=== PATIENT | female | born 1965 | race Caucasian/White ===

== ENCOUNTER 2022-05-06 03:31 | Inpatient (IN) | payer OTHER, SELFPAY ==
--- NOTE | 2022-05-06 | ECG_ITS ---
Test Reason : MED CLEARANCE Blood Pressure : / mmHG Vent. Rate : 079 BPM Atrial Rate : 079 BPM P-R Int : 136 ms QRS Dur : 074 ms QT Int : 362 ms P-R-T Axes : 012 027 025 degrees QTc Int : 415 ms Normal sinus rhythm Normal ECG When compared with ECG of 14-OCT-2019 19:59, No significant change was found Referred By: Generic ED Physician Electronically Signed By:FORTINO CALVILLO
--- NOTE | ~2022-05-06 | XR_ITS ---
EXAMINATION: XR FOOT, LEFT CLINICAL INFORMATION: Rule out fracture 3rd-5th metatarsals COMPARISON: None TECHNIQUE: AP, lateral, and oblique views of the left foot. FINDINGS: Osseous alignment is anatomic. There is chronic appearing absence of the head of the second proximal phalanx. There is subtle cortical irregularity at the head of the fifth proximal phalanx. Articular alignment is anatomic. There is mild degenerative change at the first MTP joint. Posterior and plantar calcaneal spurs are noted. No significant focal soft tissue abnormality identified. XR/XR foot LT 2V IMPRESSION: Subtle cortical irregularity at the head of the fifth proximal phalanx, suspicious for nondisplaced fracture in the setting of trauma; clinical correlation recommended at this site.
[2022-05-06 03:41] VITALS: BP 145/78; PULSE 86; RESP 16; TEMP 37; O2SAT 96; BMI 34.7
[2022-05-06 04:24] LABS: Appearance Urine Clear; Color Urine Yellow; Glucose Urine UA Negative (Negative); Leukocyte Esterase Urine Moderate (2+) (Negative); Nitrite Urine Negative (Negative); Urine Blood Negative (Negative); Urine Ketones Negative (Negative); Urine Protein Negative (Neg-Trace)
[2022-05-06 04:29] LABS: Bacteria Urine None Seen (None Seen); Hyaline Casts Urine 0-2 /LPF (0-2); RBC Urine 0-2 /HPF (0-2); WBC Urine 21-50 /HPF (0-5)
[2022-05-06 04:38] LABS: COVID-19 Test Negative (Negative)
[2022-05-06 04:40] LABS: Amphetamine Screen Urine Not Detected (Not Detect); Barbiturates, Urine Not Detected (Not Detect); Benzodiazepines Screen Urine Not Detected (Not Detect); Cannabinoid Screen Urine Not Detected (Not Detect); Cocaine Screen Urine Not Detected (Not Detect); Fentanyl, urine Not Detected (Not Detect); Opiate Screen Urine Not Detected (Not Detect); Phencyclidine Screen Urine Not Detected (Not Detect)
[2022-05-06 04:41] LABS: MANUAL DIFF FLAG NO
[2022-05-06 04:42] LABS: Basophils Absolute Auto 0.1 X10*3/uL (0.0-0.2); Basophils Percent Auto 0.5 % (0-2); Eosinophils Absolute Auto 0.3 X10*3/uL (0.0-0.4); Eosinophils Percent Auto 2.8 % (0-4); Hematocrit 39.3 % (37.0-47.0); Hemoglobin 13.4 g/dl (12.0-16.0); Imm Gran Abs Auto 0.05 X10*3/uL (0.00-0.03); Imm Gran Pct Auto 0.5 % (0.0-0.4); Lymphocytes Absolute Auto 1.2 X10*3/uL (1.2-4.9); Lymphocytes Percent Auto 11.4 % (20-40); Mean Corpuscular HGB Conc 34.1 g/dl (31.0-35.0); Mean Corpuscular Hemoglobin 30.7 pg (27.0-33.0); Mean Corpuscular Volume 90.1 fL (80.0-98.0); Mean Platelet Volume 9.1 fL (9.4-12.3); Monocytes Absolute Auto 0.7 X10*3/uL (0.1-1.2); Monocytes Percent Auto 6.7 % (2-11); Neutrophils Percent Auto 78.1 % (45-73); Platelet Count 240 X10*3/uL (160-400); Red Blood Count 4.36 X10*6/uL (4.20-5.50); Red Cell Distribution Width 12.9 % (11.0-16.0); White Blood Count 10.2 X10*3/uL (4.8-10.8)
[2022-05-06 04:52] LABS: Prothrombin Time 11.7 SEC (10.0-13.1)
[2022-05-06 05:00] LABS: Alanine Aminotransferase 30 U/L (0-31); Albumin Level 3.8 g/dL (3.5-5.0); Alkaline Phosphatase 108 U/L (39-117); Anion Gap 16 (12-20); Aspartate Amino Transferase 24 U/L (5-31); Bilirubin Total 0.3 mg/dL (0.0-1.0); Blood Urea Nitrogen 10 mg/dL (9-16); Calcium 8.8 mg/dL (8.4-10.2); Carbon Dioxide 24 mmol/L (22-29); Chloride 103 mmol/L (96-108); Creatinine Clr Calc Pharmacy 91.4; Estimated Glomerular Filt Rate > 60; Glucose Random 119 mg/dL (60-115); Potassium 3.9 mmol/L (3.3-5.1); Sodium 139 mmol/L (135-145); Total Protein 7.2 g/dL (6.5-8.0)
--- NOTE | 2022-05-06 06:17 | ED_ITS ---
HPI - Psych General Chief Complaint: Psychiatric Symptoms Stated Complaint: crisis Time Seen by Provider: 05/06/22 06:05 Source: patient and EMS Mode of arrival: EMS Limitations: no limitations History of Present Illness HPI Narrative: Patient comes to the emergency room via EMS from home. Patient attempted to com alexander suicide by overdosing with Seroquel 2 days ago. Patient states that her depression has been getting worse, behavioral health network [facility] the patient and patient came to the emergency room. Patient current complaint is pain in her toes. Patient has bruising and the dorsal aspect of the left foot. Patient states that 2 days ago when she was very somnolent after taking all that Seroquel, she had her toes against the wall. Otherwise, at this time patient has no complaints. Related Data Home Medications Medication Instructions Recorded Confirmed escitalopram oxalate 20 mg tablet 1 tab PO QAM 05/06/22 05/06/22 levothyroxine 88 mcg tablet 1 tab PO DAILY 05/06/22 05/06/22 lorazepam 1 mg tablet 1 tab PO BEDTIME PRN insomnia 05/06/22 05/06/22 pantoprazole 20 mg tablet,delayed 1 tab PO DAILY 05/06/22 05/06/22 release phenytoin sodium extended 100 mg 2 cap PO DAILY 05/06/22 05/06/22 capsule quetiapine 50 mg tablet 1 tab PO BEDTIME PRN Anxiety 05/06/22 05/06/22 Allergies Allergy/AdvReac Type Severity Reaction Status Date / Time lamotrigine [From LAMICTAL] Allergy Mild SHORTNESS Unverified 05/11/20 16:28 OF BREATH cat dander [CATS] Allergy Unknown unk Unverified 05/11/20 16:28 cheese [CHEESE] Allergy Unknown UNKNOWN Unverified 05/11/20 16:28 dog dander [DOGS] Allergy Unknown unk Unverified 05/11/20 16:28 mold [MOLD] Allergy Unknown UNKNOWN Unverified 05/11/20 16:28 pollen extracts [POLLEN] Allergy Unknown UNKNOWN Unverified 05/11/20 16:28 ragweed pollen [RAGWEED] Allergy Unknown UNKNOWN Unverified 05/11/20 16:28 tomato [TOMATO] Allergy Unknown UNKNOWN Unverified 05/11/20 16:28 adhesives Allergy Unknown unk Uncoded 05/11/20 16:28 Review of Systems Review of Systems: Constitutional : No Weight loss, No Fever, No Chills, No Night Sweats, No Fatigue, No Malaise ENT/Mouth : No Hearing loss, No Ear Pain, No Nasal Congestion, No Sinus Pain, No Hoarseness, No sore throat, No Rhinorrhea, No Swallowing Difficulty Eyes: No Eye Pain, No Swelling, No Redness, No Foreign Body, No Discharge, No Vision Changes Cardiovascular : No Chest Pain, No SOB, No Dyspnea on Exertion, No Orthopnea, No Edema, No Palpitations Respiratory : No Cough, No Sputum, No Wheezing, No Smoke Exposure, No Dyspnea Gastrointestinal : No Nausea, No Vomiting, No Diarrhea, No Constipation, No abdominal Pain, No Hematochezia, No Melena Genitourinary : no irregular bleeding, No Dysuria, No Urinary Frequency, No Hematuria, No Urinary Incontinence, No Urgency, No Flank Pain, No Urinary Flow Changes, No Hesitancy Musculoskeletal : No joint pain, No Myalgias, No Joint Swelling Skin : No Skin Lesions, No rash Neuro : No Weakness, No Numbness, No Paresthesias, No Loss of Consciousness, No Dizziness, No Headache Psych : Complaining of suicidal ideation and suicidal attempt 2 days ago. No homicidal ideation. Heme/Lymph: No Bruising, No Bleeding,No Lymphadenopathy Endocrine : No Polyuria, No Polydipsia, No Temperature Intolerance [facility] Past Medical History Medical History (Updated 05/06/22 @ 06:56 by Sidra Perez MD) Chronic post-traumatic stress disorder (PTSD) Epilepsy Major depression with psychotic features Social History Social History Advance Directives: No Advance Directives Information Provided: Yes Physical Exam Vital Signs: Vital Signs: Last Vital Signs Temp 98.6 F 05/06/22 03:41 Pulse 86 05/06/22 03:41 Resp 16 05/06/22 03:41 BP 145/78 H 05/06/22 03:41 Pulse Ox 96 05/06/22 03:41 O2 Del Method 05/06/22 03:41 BMI result Body Mass Index 34.7 Const: Other: Appearance: Alert. Oriented X3. No acute distress. Eyes: Pupils equal, round and reactive to light. ENT: Pharynx normal. Neck: Normal inspection. Neck supple. No lymph nodes noted. No crepitus CVS: Normal heart rate and rhythm. Pulses normal. Normal S1 and S2 Respiratory: No respiratory distress. Breath sounds normal. No Wheezing. No rales Abdomen: Soft and nontender. No rigidity. No distention. Skin: Skin warm and dry. Normal skin color. Normal skin turgor. Extremities: No lower extremity edema. Patient has ecchymosis on the dorsum of the left foot, the 3rd 4th and 5th toes of the left foot are swollen on the dorsum of the foot has ecchymosis. Neuro: Oriented X 3. No motor deficit. No sensory deficit. Moving all extremities. No slurred speech. CN 2 through 12 grossly intact Psych: calm, cooperative, normal affect Course Course Course Narrative: Patient's labs are pending. X-ray of the foot pending. Patient has a mild UTI, patient being treated with cefuroxime. Patient is on a Section 12, behavioral health network consult pending. Physician observation started at 06:22 X-ray of the foot shows a subtle cortical irregularity of the head of the 5th proximal phalanx, suspicion for a nondisplaced fracture. Patient's toes have been kevin-taped [facility] - Psych Lab Data Result diagrams: 05/06/22 04:30 05/06/22 04:30 Labs: Lab Results 05/06/22 05/06/22 05/06/22 Range/Units 04:06 04:06 04:06 WBC (4.8-10.8) X10*3/uL RBC (4.20-5.50) X10*6/uL Hgb (12.0-16.0) g/dl Hct (37.0-47.0) % MCV (80.0-98.0) fL MCH (27.0-33.0) pg MCHC (31.0-35.0) g/dl RDW (11.0-16.0) % Plt Count (160-400) X10*3/uL MPV (9.4-12.3) fL Immature Gran % (Auto) (0.0-0.4) % Neut % (Auto) (45-73) % Lymph % (Auto) (20-40) % [place] % (Auto) (2-11) % Eos % (Auto) (0-4) % Baso % (Auto) (0-2) % Lymph # (Auto) (1.2-4.9) X10*3/uL [place] # (Auto) (0.1-1.2) X10*3/uL Eos # (Auto) (0.0-0.4) X10*3/uL Baso # (Auto) (0.0-0.2) X10*3/uL Abs Immat Gran (auto) (0.00-0.03) X10*3/uL Absolute Neuts (auto) (2.0-8.3) x10*3/uL Absolute Nucleated RBC (0.0-0.012) X10*3/uL Nucleated RBC % (auto) (0.0-0.2) /100WBC PT (10.0-13.1) SEC INR (0.9-1.1) Sodium (135-145) mmol/L Potassium (3.3-5.1) mmol/L Chloride (96-108) mmol/L Carbon Dioxide (22-29) mmol/L Anion Gap (12-20) BUN (9-16) mg/dL Creatinine (0.5-1.4) mg/dL Estim Creat Clear Calc Estimated GFR Random Glucose (60-115) mg/dL Calcium (8.4-10.2) mg/dL Total Bilirubin (0.0-1.0) mg/dL AST (5-31) U/L ALT (0-31) U/L Alkaline Phosphatase (39-117) U/L Total Protein (6.5-8.0) g/dL Albumin (3.5-5.0) g/dL Urine Color Yellow Urine Appearance Clear Urine pH 6.0 (5.0-9.0) Ur Specific [place] 1.010 (1.005-1.025) Urine Protein Negative (Neg-Trace) mg/dL Urine Glucose (UA) Negative (Negative) mg/dL Urine Ketones Negative (Negative) mg/dL Urine Blood Negative (Negative) Urine Nitrite Negative (Negative) Ur Leukocyte Esterase Moderate (2+) H (Negative) Urine RBC 0-2 (0-2) /HPF Urine WBC 21-50 H (0-5) /HPF Ur Squamous Epith Cells 3-5 (0-2) /HPF Urine Bacteria None Seen (None Seen) Hyaline Casts 0-2 (0-2) /LPF Urine Opiates Screen Not Detected (Not Detect) Urine Fentanyl Screen Not Detected (Not Detect) Ur Barbiturates Screen Not Detected (Not Detect) Ur Phencyclidine Scrn Not Detected (Not Detect) Ur Amphetamines Screen Not Detected (Not Detect) U Benzodiazepines Scrn Not Detected (Not Detect) Urine Cocaine Screen Not Detected (Not Detect) U Marijuana (THC) Screen Not Detected (Not Detect) COVID-19 (MEET) Negative (Negative) COVID-19 Clin Com See Note 05/06/22 05/06/22 05/06/22 Range/Units 04:30 04:30 04:30 WBC 10.2 (4.8-10.8) X10*3/uL RBC 4.36 (4.20-5.50) X10*6/uL Hgb 13.4 (12.0-16.0) g/dl Hct 39.3 (37.0-47.0) % MCV 90.1 (80.0-98.0) fL MCH 30.7 (27.0-33.0) pg MCHC 34.1 (31.0-35.0) g/dl RDW 12.9 (11.0-16.0) % Plt Count 240 (160-400) X10*3/uL MPV 9.1 L (9.4-12.3) fL Immature Gran % (Auto) 0.5 H (0.0-0.4) % Neut % (Auto) 78.1 H (45-73) % Lymph % (Auto) 11.4 L (20-40) % [place] % (Auto) 6.7 (2-11) % Eos % (Auto) 2.8 (0-4) % Baso % (Auto) 0.5 (0-2) % Lymph # (Auto) 1.2 (1.2-4.9) X10*3/uL [place] # (Auto) 0.7 (0.1-1.2) X10*3/uL Eos # (Auto) 0.3 (0.0-0.4) X10*3/uL Baso # (Auto) 0.1 (0.0-0.2) X10*3/uL Abs Immat Gran (auto) 0.05 H (0.00-0.03) X10*3/uL Absolute Neuts (auto) 8.0 (2.0-8.3) x10*3/uL Absolute Nucleated RBC 0.000 (0.0-0.012) X10*3/uL Nucleated RBC % (auto) 0.0 (0.0-0.2) /100WBC PT 11.7 (10.0-13.1) SEC INR 1.0 (0.9-1.1) Sodium 139 (135-145) mmol/L Potassium 3.9 (3.3-5.1) mmol/L Chloride 103 (96-108) mmol/L Carbon Dioxide 24 (22-29) mmol/L Anion Gap 16 (12-20) BUN 10 (9-16) mg/dL Creatinine 0.79 (0.5-1.4) mg/dL Estim Creat Clear Calc 91.4 Estimated GFR > 60 Random Glucose 119 H (60-115) mg/dL Calcium 8.8 (8.4-10.2) mg/dL Total Bilirubin 0.3 (0.0-1.0) mg/dL AST 24 (5-31) U/L ALT 30 (0-31) U/L Alkaline Phosphatase 108 (39-117) U/L Total Protein 7.2 (6.5-8.0) g/dL Albumin 3.8 (3.5-5.0) g/dL Urine Color Urine Appearance Urine pH (5.0-9.0) Ur Specific [place] (1.005-1.025) Urine Protein (Neg-Trace) mg/dL Urine Glucose (UA) (Negative) mg/dL Urine Ketones (Negative) mg/dL Urine Blood (Negative) Urine Nitrite (Negative) Ur Leukocyte Esterase (Negative) Urine RBC (0-2) /HPF Urine WBC (0-5) /HPF Ur Squamous Epith Cells (0-2) /HPF Urine Bacteria (None Seen) Hyaline Casts (0-2) /LPF Urine Opiates Screen (Not Detect) Urine Fentanyl Screen (Not Detect) Ur Barbiturates Screen (Not Detect) Ur Phencyclidine Scrn (Not Detect) Ur Amphetamines Screen (Not Detect) U Benzodiazepines Scrn (Not Detect) Urine Cocaine Screen (Not Detect) U Marijuana (THC) Screen (Not Detect) COVID-19 (MEET) (Negative) COVID-19 Clin Com Imaging Data Foot x-ray: Radiologist's impression: FINDINGS: Osseous alignment is anatomic. There is chronic appearing absence of the head of the second proximal phalanx. There is subtle cortical irregularity at the head of the fifth proximal phalanx. Articular alignment is anatomic. There is mild degenerative change at the first MTP joint. Posterior and plantar calcaneal spurs are noted. No significant focal soft tissue abnormality identified. XR/XR foot LT 2V IMPRESSION: Subtle cortical irregularity at the head of the fifth proximal phalanx, suspicious for nondisplaced fracture in the setting of trauma; clinical correlation recommended at this site. Discharge Plan Discharge Clinical Impression: Suicidal ideation, UTI (urinary tract infection), Fracture of toe Patient Disposition: Still a Patient Prescriptions: No Action phenytoin sodium extended 100 mg capsule 2 cap PO DAILY pantoprazole 20 mg tablet,delayed release (DR/EC) 1 tab PO DAILY levothyroxine 88 mcg tablet 1 tab PO DAILY escitalopram oxalate 20 mg tablet 1 tab PO QAM quetiapine 50 mg tablet 1 tab PO BEDTIME PRN (Reason: Anxiety) lorazepam 1 mg tablet 1 tab PO BEDTIME PRN (Reason: insomnia)
--- NOTE | 2022-05-06 07:04 | PC.NURSE ---
Patient slept intermittently, no distress observed/reported, patient was assessed by [facility] in the community, disposition per n is section 12 inpatient bed search, med rec completed/pending provider's approval, patient is + for UTI treated with ceftin 500 mg BID, morning dose administered/patient compliant, X-ray of left foot done/result unremarkable, behavior pleasant and non concerning, will continue to monitor.
[2022-05-06 07:30] LABS: Phenytoin Dilantin 0.6 ug/mL (10.0-20.0)
[2022-05-06] MEDS: Phenytoin Sodium Extended 100 MG CAPSULE 300 MG PO (08:01)
[2022-05-06] MEDS: Omeprazole 20 MG CAPSULE.DR PO (08:01)
[2022-05-06] MEDS: Levothyroxine Sodium 88 MCG TABLET PO (08:01)
[2022-05-06] MEDS: Escitalopram Oxalate 20 MG TABLET PO (08:01)
[2022-05-06 09:52] VITALS: BP 132/68; PULSE 85; RESP 17; TEMP 36.6; O2SAT 98
[2022-05-06] MEDS: Phenytoin Sodium Extended 100 MG CAPSULE 200 MG PO (10:21)
--- NOTE | 2022-05-06 10:28 | PC.NURSE ---
kevin tape to left 4th and 5th foot digits per md this am. pt calm and cooperative aware of plan of care and denied having any questions at this time.
--- NOTE | 2022-05-06 14:56 | PC.NURSE ---
Pt seen for individual OT intervention on this date. Pt stated she was very anxious, rateed it at a 10/10 and wished to process some of her thoughts and emotions. This auto service writer used Therapeutic Use of Self to engage with resident and provide comfort and coping strategies. At end of intervention pt was visibly calmer, thanked this auto service writer and rated her anxiety at a 6/10.
[2022-05-06] MEDS: QUEtiapine Fumarate 50 MG TABLET PO (20:46)
[2022-05-07 02:03] VITALS: BP 118/63; PULSE 86; RESP 17; TEMP 37.1; O2SAT 96
--- NOTE | 2022-05-07 06:10 | PC.NURSE ---
Patient slept through the night, no distress observed/reported, patient was assessed by [facility] in the community, disposition per n is section 12 inpatient bed search, medication compliant, behavior pleasant and non concerning, VSS, will continue to monitor.
[2022-05-07] MEDS: Omeprazole 20 MG CAPSULE.DR PO (06:21)
[2022-05-07] MEDS: Levothyroxine Sodium 88 MCG TABLET PO (06:21)
--- NOTE | 2022-05-07 07:40 | PC.NURSE ---
patient appears to remain at rest at present respirations are even and unlabored patient appears in no distress
[2022-05-07] MEDS: Escitalopram Oxalate 20 MG TABLET PO (08:04)
[2022-05-07] MEDS: Phenytoin Sodium Extended 100 MG CAPSULE 200 MG PO (08:04)
[2022-05-07] MEDS: LORazepam 1 MG TABLET PO (12:16)
[2022-05-07 13:05] VITALS: BP 129/68; PULSE 79; TEMP 36.8; O2SAT 94
[2022-05-07 14:55] LABS: COVID-19 Test Negative (Negative); IDNOW Serial# 55D5AD1C
--- NOTE | 2022-05-07 16:45 | PC.NURSE ---
Pt signed a 3-day notice on 05/07/22, up on 05/10/22
--- NOTE | 2022-05-07 19:14 | PC.ADMIT ---
Addendum entered by Dariusz Harris RN 05/07/22 20:44: Pts 4th +5th foot digits has kevin tape. Foot [id number] toes Original Note: Pt is a 57 year old female who presents to from [facility] ED at approx 1600 on a cv status. Pt is covid - Utox screen -, pt is taking ABX for a UTI. Per chart review, pt called [facility] Crisis reporting she is spiraling downward due to a recent of her father on 04/04/22. Pt worried about having a seizure due to not sleeping. Pt reported that she had a suicide attempt two days ago in which she overdosed on whatever drugs she can find. During admit, pt reported that her phenytoin level is at 0.6.Dr. Sifuentes's office was contacted to discuss phenytoin levels, but the office was unreachable. Pt diagnosed with unspecified depressive disorder and uncomplicated bereavement admission. Provider contacted and notified of admission. Start treatment plan and monitor for safety.
[2022-05-07] MEDS: QUEtiapine Fumarate 50 MG TABLET PO (20:10)
[2022-05-07] MEDS: diphenhydrAMINE HCL 25 MG TABLET 50 MG PO (20:36)
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
[2022-05-07] MEDS: Phenytoin Sodium Extended 100 MG CAPSULE 300 MG PO (22:05)
[2022-05-07] MEDS: Hydrocortisone 1 % Cream 28.35 GM TUBE 1 APPL TOPICAL (22:08)
[2022-05-08] MEDS: Acetaminophen 325 MG TABLET 650 MG PO (05:03)
[2022-05-08 07:30] VITALS: BP 121/67; PULSE 86; RESP 16; TEMP 36.3; O2SAT 95
[2022-05-08] MEDS: Phenytoin Sodium Extended 100 MG CAPSULE 200 MG PO (08:32)
[2022-05-08] MEDS: Escitalopram Oxalate 20 MG TABLET PO (08:32)
[2022-05-08] MEDS: Omeprazole 20 MG CAPSULE.DR PO (08:32)
[2022-05-08] MEDS: Levothyroxine Sodium 88 MCG TABLET PO (08:32)
[2022-05-08] MEDS: guaiFENesin LA 600 MG TAB.ER.12H PO (11:52)
[2022-05-08] MEDS: Ibuprofen 600 MG TABLET PO (11:53)
[2022-05-08] MEDS: Hydrocortisone 1 % Cream 28.35 GM TUBE 1 APPL TOPICAL ×3 (16:00→20:39)
--- NOTE | 2022-05-08 16:03 | PC.NURSE ---
Pt signed a 3 day notice on 05/07 up on Friday, 05/10. , MARITZA, and SW aware.
--- NOTE | 2022-05-08 16:33 | P.PNPSI_ITS ---
Subjective Subjective Date of Service: 05/08/22 Reason For Visit: Depression/ SI Interim History: Patient reports feeling much better. She says depression is gone and suicidality fully resolved. She says it is because she is back on her Dilantin; off it she was starting to feel very confused and emotional and now back on it she is feeling back to her regular self. She is sure that this is the only reason she got dysregulated and suicidal, was having run out of this medication. Patient says I am not suicidal... I have a 19-year-old son with Asperger's...I'm not suicidal. Patient discussed the struggle she has been having with this medication, how insurance companies have changed and she has had a hard time getting her regular dose approved. She says that her outpatient neurologist Dr. Yoo has been working to get it approved but it is been slow going. She is also in between PCPs since the insurance change which is making her anxious. Patient shares that she feels ready to go home. She signed a 3 day notice. However she expresses much gratitude for help received on the unit and help trying to get her medications squared away. Mental Status Exam Mental Status Exam Narrative: Pt is alert and oriented; behavior is cooperative, friendly and calm; patient is not in distress; dressed in casual attire, adequately groomed, good hygiene; mood is described as good...better and affect congruent, bright; eye contact appropriate; Speech is normal rate, volume and prosody and not pressured; no psychomotor agitation/retardation present; thought process is organized and goal directed; Thought content is on tx; otherwise pertinent to relevant topics and without any delusional content, paranoid ideations or grandiosity; denies any SI/HI. There is no evidence of perceptual disturbance. Patients insight and judgment are intact. Diagnostics Vital Signs (24Hr): Vital Signs - 24 hr 05/08/22 07:30 Temperature 97.3 F Pulse Rate 86 Respiratory Rate 16 Blood Pressure 121/67 Pulse Oximetry 95 Oxygen Delivery Method Room Air BMI result Body Mass Index 34.7 Labs Results: 05/06/22 04:30 05/06/22 04:30 Labs: Laboratory Results - last 48 hr 05/07/22 14:28 COVID-19 (MEET) Negative COVID-19 Clin Com See Note Imaging Radiology Impressions: ITS Impressions Foot X-Ray 05/06/22 06:30 IMPRESSION: Subtle cortical irregularity at the head of the fifth proximal phalanx, suspicious for nondisplaced fracture in the setting of trauma; clinical correlation recommended at this site. Medications Medications Current Medications Acetaminophen (Acetaminophen 325 Mg Tablet) 650 mg PO Q6H PRN PRN Reason: Headache/Pain Mild Scale (1-3) Last Admin: 05/08/22 05:03 Dose: 650 mg Al Hydroxide/Mg Hydroxide (Magnesium Hydrox/Alum Hydrox 30 Ml Oral.Susp) 30 ml PO Q6H PRN PRN Reason: Heartburn/Nausea Cefuroxime Axetil (Cefuroxime Axetil 250 Mg Tablet) 250 mg PO BID [facility] Last Admin: 05/08/22 08:32 Dose: 250 mg Escitalopram Oxalate (Escitalopram Oxalate 20 Mg Tablet) 20 mg PO DAILY [facility] Last Admin: 05/08/22 08:32 Dose: 20 mg Hydrocortisone (Hydrocortisone 1 % Cream 28.35 Gm Tube) 1 appl TOPICAL BID PRN PRN Reason: rash from EKG leads Last Admin: 05/08/22 16:00 Dose: 1 appl Hydroxyzine HCl (Hydroxyzine Hcl 25 Mg Tablet) 25 mg PO Q6H PRN PRN Reason: Anxiety Ibuprofen (Ibuprofen 600 Mg Tablet) 600 mg PO Q6H PRN PRN Reason: mod-severe Last Admin: 05/08/22 11:53 Dose: 600 mg Levothyroxine Sodium (Levothyroxine Sodium 88 Mcg Tablet) 88 mcg PO DAILY@0600 [facility] Last Admin: 05/08/22 08:32 Dose: 88 mcg Lorazepam (Lorazepam 1 Mg Tablet) 1 mg PO BEDTIME PRN PRN Reason: insomnia Last Admin: 05/07/22 12:16 Dose: 1 mg Magnesium Hydroxide (Milk Of Magnesia 30 Ml Oral.Susp) 30 ml PO DAILY PRN PRN Reason: Constipation Omeprazole (Omeprazole 20 Mg Capsule.Dr) 20 mg PO DAILY@0630 [facility] Last Admin: 05/08/22 08:32 Dose: 20 mg Phenytoin Sodium (Phenytoin Sodium Extended 100 Mg Capsule) 200 mg PO DAILY [facility] Last Admin: 05/08/22 08:32 Dose: 200 mg Phenytoin Sodium (Phenytoin Sodium Extended 100 Mg Capsule) 300 mg PO BEDTIME [facility] Last Admin: 05/07/22 22:05 Dose: 300 mg Pseudoephedrine HCl (Pseudoephedrine Hcl 30 Mg Tablet) 30 mg PO Q6H PRN PRN Reason: congested sinus Quetiapine Fumarate (Quetiapine Fumarate 50 Mg Tablet) 50 mg PO BEDTIME PRN PRN Reason: Anxiety Last Admin: 05/07/22 20:10 Dose: 50 mg Allergies Allergies Allergy/AdvReac Type Severity Reaction Status Date / Time lamotrigine [From LAMICTAL] Allergy Mild SHORTNESS Unverified 05/11/20 16:28 OF BREATH cat dander [CATS] Allergy Unknown unk Unverified 05/11/20 16:28 cheese [CHEESE] Allergy Unknown UNKNOWN Unverified 05/11/20 16:28 dog dander [DOGS] Allergy Unknown unk Unverified 05/11/20 16:28 mold [MOLD] Allergy Unknown UNKNOWN Unverified 05/11/20 16:28 pollen extracts [POLLEN] Allergy Unknown UNKNOWN Unverified 05/11/20 16:28 ragweed pollen [RAGWEED] Allergy Unknown UNKNOWN Unverified 05/11/20 16:28 tomato [TOMATO] Allergy Unknown UNKNOWN Unverified 05/11/20 16:28 adhesives Allergy Unknown unk Uncoded 05/11/20 16:28 Assessment & Plan Assessment & Plan (1) MDD (major depressive disorder), recurrent episode, moderate: Status: Acute Code(s): F33.1 - Major depressive disorder, recurrent, moderate (2) Epilepsy: Status: Acute Code(s): G40.909 - Epilepsy, unspecified, not intractable, without status epilepticus (3) UTI (urinary tract infection): Status: Acute Code(s): N39.0 - Urinary tract infection, site not specified Plan Katharina is a 57 y.o. Female who carries a dx of MDD, recurrent and epilepsy. She presented to [facility] on 05/06/2022 due to recent SA by OD 2 days prior and worsening depression. Attributes current presentation to non-adherence with dilantin and her father's in 04/04/22. 05/08 patient denies depression or any SI. She is sure that she got dysregulated because she was running out of her Dilantin medication and without it she feels her mood was totally altered. Back on the medication she reports feeling back to her regular self, she says now on the medication, she can feel it in her body. 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 Patient is hopeful to get back on her regular Dilantin dose however insurance is making this difficult. Patient feels ready to go home and back to her regular self. She does however want to attend partial day program. Patient talked about losing her father which is been sad event but patient feels that she is coping with it adequately. She denies any prior SI Plan: 3 day notice Continue lexapro 20 mg daily, re-increase dilantin to 200 mg daily and 300 mg HS and obtain a new level. Collect collateral info, pt minimizing suicide attempt, did not seek medical attn immediately after OD. Q15 min safety checks, Monitor response to medications. Monitor for safety in the milieu. Discharge on stabilization. Patient seen. Chart reviewed. Discussed with team. Obtain collateral contact info?as needed I spent minutes with the patient and/or on the patient floor today, greater than?50% of which was spent counseling/coordinating care. Patient educated on: diagnosis, medication risk/benefits and therapeutic strategies Informed Consent: understands Reason for contiued inpatient stay Substantial Risk for: stable for discharge
[2022-05-08 18:00] VITALS: BP 155/74; PULSE 72; RESP 18; TEMP 36.8; O2SAT 98
[2022-05-08] MEDS: Phenytoin Sodium Extended 100 MG CAPSULE 300 MG PO (20:38)
[2022-05-08] MEDS: QUEtiapine Fumarate 50 MG TABLET PO (20:39)
[2022-05-09] MEDS: Omeprazole 20 MG CAPSULE.DR PO (08:44)
[2022-05-09] MEDS: Levothyroxine Sodium 88 MCG TABLET PO (08:44)
[2022-05-09] MEDS: Phenytoin Sodium Extended 100 MG CAPSULE 200 MG PO (08:44)
[2022-05-09] MEDS: Escitalopram Oxalate 20 MG TABLET PO (08:44)
[2022-05-09] MEDS: Ibuprofen 600 MG TABLET PO (08:49)
[2022-05-09 09:10] VITALS: BP 125/69; PULSE 100; RESP 18; TEMP 37.1; O2SAT 96
[2022-05-09 11:01] VITALS: BMI 35.1
--- NOTE | 2022-05-09 15:50 | P.PNPSI_ITS ---
Subjective Subjective Date of Service: 05/09/22 Reason For Visit: Depression/ SI Interim History: Patient remains in good mood, no SI, feeling her regular self. Grateful for treatment received. Still feels ready to go tomorrow in her 3 days up. Also wants to get partial. She does have a little anxiety about going home but feels ready for it. She feels badly that her son saw her so dysregulated. Mental Status Exam Mental Status Exam Narrative: Pt is alert and oriented; behavior is cooperative, friendly and calm; patient is not in distress; dressed in casual attire, adequately groomed, good hygiene; mood is described as good...better and affect congruent, bright; eye contact appropriate; Speech is normal rate, volume and prosody and not pressured; no psychomotor agitation/retardation present; thought process is organized and goal directed; Thought content is on tx; otherwise pertinent to relevant topics and without any delusional content, paranoid ideations or grandiosity; denies any SI/HI. There is no evidence of perceptual disturbance. Patients insight and judgment are intact. Diagnostics Vital Signs (24Hr): Vital Signs - 24 hr 05/08/22 18:00 05/09/22 09:10 Temperature 98.2 F 98.7 F Pulse Rate 72 100 Respiratory Rate 18 18 Blood Pressure 155/74 H 125/69 Pulse Oximetry 98 96 Oxygen Delivery Method Room Air Room Air BMI result Body Mass Index 35.1 Labs Results: 05/06/22 04:30 05/06/22 04:30 Imaging Radiology Impressions: ITS Impressions Foot X-Ray 05/06/22 06:30 IMPRESSION: Subtle cortical irregularity at the head of the fifth proximal phalanx, suspicious for nondisplaced fracture in the setting of trauma; clinical correlation recommended at this site. Medications Medications Current Medications Acetaminophen (Acetaminophen 325 Mg Tablet) 650 mg PO Q6H PRN PRN Reason: Headache/Pain Mild Scale (1-3) Last Admin: 05/08/22 05:03 Dose: 650 mg Al Hydroxide/Mg Hydroxide (Magnesium Hydrox/Alum Hydrox 30 Ml Oral.Susp) 30 ml PO Q6H PRN PRN Reason: Heartburn/Nausea Cefuroxime Axetil (Cefuroxime Axetil 250 Mg Tablet) 250 mg PO BID LIZZIE Last Admin: 05/09/22 08:44 Dose: 250 mg Escitalopram Oxalate (Escitalopram Oxalate 20 Mg Tablet) 20 mg PO DAILY [facility] Last Admin: 05/09/22 08:44 Dose: 20 mg Hydrocortisone (Hydrocortisone 1 % Cream 28.35 Gm Tube) 1 appl TOPICAL BID PRN PRN Reason: rash from EKG leads Last Admin: 05/08/22 20:39 Dose: 1 appl Hydroxyzine HCl (Hydroxyzine Hcl 25 Mg Tablet) 25 mg PO Q6H PRN PRN Reason: Anxiety Ibuprofen (Ibuprofen 600 Mg Tablet) 600 mg PO Q6H PRN PRN Reason: mod-severe Last Admin: 05/09/22 08:49 Dose: 600 mg Levothyroxine Sodium (Levothyroxine Sodium 88 Mcg Tablet) 88 mcg PO DAILY@0600 [facility] Last Admin: 05/09/22 08:44 Dose: 88 mcg Lorazepam (Lorazepam 1 Mg Tablet) 1 mg PO BEDTIME PRN PRN Reason: insomnia Last Admin: 05/07/22 12:16 Dose: 1 mg Magnesium Hydroxide (Milk Of Magnesia 30 Ml Oral.Susp) 30 ml PO DAILY PRN PRN Reason: Constipation Omeprazole (Omeprazole 20 Mg Capsule.Dr) 20 mg PO DAILY@0630 [facility] Last Admin: 05/09/22 08:44 Dose: 20 mg Phenytoin Sodium (Phenytoin Sodium Extended 100 Mg Capsule) 200 mg PO DAILY [facility] Last Admin: 05/09/22 08:44 Dose: 200 mg Phenytoin Sodium (Phenytoin Sodium Extended 100 Mg Capsule) 300 mg PO BEDTIME [facility] Last Admin: 05/08/22 20:38 Dose: 300 mg Pseudoephedrine HCl (Pseudoephedrine Hcl 30 Mg Tablet) 30 mg PO Q6H PRN PRN Reason: congested sinus Quetiapine Fumarate (Quetiapine Fumarate 50 Mg Tablet) 50 mg PO BEDTIME PRN PRN Reason: Anxiety Last Admin: 05/08/22 20:39 Dose: 50 mg Allergies Allergies Allergy/AdvReac Type Severity Reaction Status Date / Time lamotrigine [From LAMICTAL] Allergy Mild SHORTNESS Unverified 05/11/20 16:28 OF BREATH cat dander [CATS] Allergy Unknown unk Unverified 05/11/20 16:28 cheese [CHEESE] Allergy Unknown UNKNOWN Unverified 05/11/20 16:28 dog dander [DOGS] Allergy Unknown unk Unverified 05/11/20 16:28 mold [MOLD] Allergy Unknown UNKNOWN Unverified 05/11/20 16:28 pollen extracts [POLLEN] Allergy Unknown UNKNOWN Unverified 05/11/20 16:28 ragweed pollen [RAGWEED] Allergy Unknown UNKNOWN Unverified 05/11/20 16:28 tomato [TOMATO] Allergy Unknown UNKNOWN Unverified 05/11/20 16:28 adhesives Allergy Unknown unk Uncoded 05/11/20 16:28 Assessment & Plan Assessment & Plan (1) Drug-induced mood disorder: Status: Acute Code(s): F19.94 - Other psychoactive substance use, unspecified with psychoactive substance-induced mood disorder Assessment and Plan: MEDICATION induced; Off Dilantin seizure medication (2) MDD (major depressive disorder), recurrent episode, moderate: Status: Acute Code(s): F33.1 - Major depressive disorder, recurrent, moderate (3) UTI (urinary tract infection): Status: Acute Code(s): N39.0 - Urinary tract infection, site not specified (4) Epilepsy: Status: Acute Code(s): G40.909 - Epilepsy, unspecified, not intractable, without status epilepticus Plan Katharina is a 57 y.o. Female who carries a dx of MDD, recurrent and epilepsy. She presented to [facility] ED on 05/06/2022 due to recent SA by OD 2 days prior and worsening depression. Attributes current presentation to non-adherence with dilantin and her father's in 04/04/22. 05/08 patient denies depression or any SI.? She is sure that she got dysregulated because she was running out of her Dilantin medication and without it she feels her mood was totally altered.? Back on the medication she reports feeling back to her regular self, she says now on the medication, she can feel it in her body.? 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 Patient is hopeful to get back on her regular Dilantin dose however insurance is making this difficult.? Patient feels ready to go home and back to her regular self.? She does however want to attend partial day program.? Patient talked about losing her father which is been sad event but patient feels that she is coping with it adequately.? She denies any prior SI 05/09 patient remains in good mood, no SI, ready to go home. Wants partial day program. However does not feel any need to remain on the unit. Paper Machine Operator agrees the patient is not in imminent risk for harm to self or others and her request for discharge honored. Will diagnosed with MEDICATION induced; Off Dilantin seizure medication which is now resolved Plan: Continue lexapro 20 mg daily, re-increase dilantin to 200 mg daily and 300 mg HS and obtain a new level. Collect collateral info, pt minimizing suicide attempt, did not seek medical attn immediately after OD. Q15 min safety checks, CV Monitor response to medications. Monitor for safety in the milieu. Discharge on stabilization. Patient seen. Chart reviewed. Discussed with team. Obtain collateral contact info?as needed I spent minutes with the patient and/or on the patient floor today, greater than?50% of which was spent counseling/coordinating care. Patient educated on: diagnosis, medication risk/benefits and therapeutic strategies Informed Consent: understands Reason for contiued inpatient stay Substantial Risk for: stable for discharge
[2022-05-09] MEDS: LORazepam 1 MG TABLET PO (16:46)
[2022-05-09 18:00] VITALS: BP 135/70; PULSE 71
[2022-05-09] MEDS: QUEtiapine Fumarate 50 MG TABLET PO (20:34)
--- NOTE | 2022-05-09 23:45 | P.DS_ITS ---
DS: Providers Provider Date of Service: 05/10/22 Date of admission: 05/07/22 14:49 Date of discharge: 05/10/22 Primary care physician: Unknown Physician Admitting clinician: Leonor Calles Attending physician on discharge: Juan Malik DS: Diagnosis Discharge Diagnosis (1) MDD (major depressive disorder), recurrent episode, moderate: Status: Resolved (2) Drug-induced mood disorder: Status: Resolved (3) UTI (urinary tract infection): Status: Resolved DS: Medications Discharge Medications Home Medications: Home Medications Medication Instructions Recorded Confirmed lorazepam 1 mg tablet 1 tab PO BEDTIME PRN insomnia 05/06/22 05/06/22 Previous Rx's Medication Instructions Recorded cefuroxime axetil 250 mg tablet 250 mg PO BID 3 days #6 tabs 05/09/22 escitalopram oxalate 20 mg tablet 20 mg PO DAILY 30 days #30 tabs 05/09/22 levothyroxine 88 mcg tablet 88 mcg PO DAILY 30 days #30 tabs 05/09/22 pantoprazole 20 mg tablet,delayed 20 mg PO DAILY 30 days #30 tabs 05/09/22 release phenytoin sodium extended 100 mg 200 mg PO DAILY 30 days #60 caps 05/09/22 capsule (Dilantin Extended) phenytoin sodium extended 100 mg 300 mg PO BEDTIME 30 days #90 caps 05/09/22 capsule (Dilantin Extended) quetiapine 50 mg tablet 50 mg PO BEDTIME PRN Anxiety 30 05/09/22 days #30 tabs Data Data Completed and Pending Completed studies during hospitalization [Text1]: 05/06/22 05/06/22 05/06/22 04:06 04:06 04:06 WBC RBC Hgb Hct MCV MCH MCHC RDW Plt Count MPV Immature Gran % (Auto) Neut % (Auto) Lymph % (Auto) [place] % (Auto) Eos % (Auto) Baso % (Auto) Lymph # (Auto) [place] # (Auto) Eos # (Auto) Baso # (Auto) Abs Immat Gran (auto) Absolute Neuts (auto) Absolute Nucleated RBC Nucleated RBC % (auto) PT INR Sodium Potassium Chloride Carbon Dioxide Anion Gap BUN Creatinine Estim Creat Clear Calc Estimated GFR Random Glucose Calcium Total Bilirubin AST ALT Alkaline Phosphatase Total Protein Albumin Urine Color Yellow Urine Appearance Clear Urine pH 6.0 Ur Specific [place] 1.010 Urine Protein Negative Urine Glucose (UA) Negative Urine Ketones Negative Urine Blood Negative Urine Nitrite Negative Ur Leukocyte Esterase Moderate (2+) H Urine RBC 0-2 Urine WBC 21-50 H Ur Squamous Epith Cells 3-5 Urine Bacteria None Seen Hyaline Casts 0-2 Urine Opiates Screen Not Detected Urine Fentanyl Screen Not Detected Ur Barbiturates Screen Not Detected Phenytoin Ur Phencyclidine Scrn Not Detected Ur Amphetamines Screen Not Detected U Benzodiazepines Scrn Not Detected Urine Cocaine Screen Not Detected U Marijuana (THC) Screen Not Detected COVID-19 (MEET) Negative COVID-19 Clin Com See Note 05/06/22 05/06/22 05/06/22 04:30 04:30 04:30 WBC 10.2 RBC 4.36 Hgb 13.4 Hct 39.3 MCV 90.1 MCH 30.7 MCHC 34.1 RDW 12.9 Plt Count 240 MPV 9.1 L Immature Gran % (Auto) 0.5 H Neut % (Auto) 78.1 H Lymph % (Auto) 11.[address] [place] % (Auto) 6.7 Eos % (Auto) 2.8 Baso % (Auto) 0.5 Lymph # (Auto) 1.2 [place] # (Auto) 0.7 Eos # (Auto) 0.3 Baso # (Auto) 0.1 Abs Immat Gran (auto) 0.05 H Absolute Neuts (auto) 8.0 Absolute Nucleated RBC 0.000 Nucleated RBC % (auto) 0.0 PT 11.7 INR 1.0 Sodium 139 Potassium 3.9 Chloride 103 Carbon Dioxide 24 Anion Gap 16 BUN 10 Creatinine 0.79 Estim Creat Clear Calc 91.4 Estimated GFR > 60 Random Glucose 119 H Calcium 8.8 Total Bilirubin 0.3 AST 24 ALT 30 Alkaline Phosphatase 108 Total Protein 7.2 Albumin 3.8 Urine Color Urine Appearance Urine pH Ur Specific [place] Urine Protein Urine Glucose (UA) Urine Ketones Urine Blood Urine Nitrite Ur Leukocyte Esterase Urine RBC Urine WBC Ur Squamous Epith Cells Urine Bacteria Hyaline Casts Urine Opiates Screen Urine Fentanyl Screen Ur Barbiturates Screen Phenytoin Ur Phencyclidine Scrn Ur Amphetamines Screen U Benzodiazepines Scrn Urine Cocaine Screen U Marijuana (THC) Screen COVID-19 (MEET) COVID-19 Clin Com 05/06/22 05/07/22 06:44 14:28 WBC RBC Hgb Hct MCV MCH MCHC RDW Plt Count MPV Immature Gran % (Auto) Neut % (Auto) Lymph % (Auto) [place] % (Auto) Eos % (Auto) Baso % (Auto) Lymph # (Auto) [place] # (Auto) Eos # (Auto) Baso # (Auto) Abs Immat Gran (auto) Absolute Neuts (auto) Absolute Nucleated RBC Nucleated RBC % (auto) PT INR Sodium Potassium Chloride Carbon Dioxide Anion Gap BUN Creatinine Estim Creat Clear Calc Estimated GFR Random Glucose Calcium Total Bilirubin AST ALT Alkaline Phosphatase Total Protein Albumin Urine Color Urine Appearance Urine pH Ur Specific [place] Urine Protein Urine Glucose (UA) Urine Ketones Urine Blood Urine Nitrite Ur Leukocyte Esterase Urine RBC Urine WBC Ur Squamous Epith Cells Urine Bacteria Hyaline Casts Urine Opiates Screen Urine Fentanyl Screen Ur Barbiturates Screen Phenytoin 0.6 L* Ur Phencyclidine Scrn Ur Amphetamines Screen U Benzodiazepines Scrn Urine Cocaine Screen U Marijuana (THC) Screen COVID-19 (MEET) Negative COVID-19 Clin Com See Note Imaging Diagnostic Imaging Impressions Foot X-Ray 05/06/22 06:30 IMPRESSION: Subtle cortical irregularity at the head of the fifth proximal phalanx, suspicious for nondisplaced fracture in the setting of trauma; clinical correlation recommended at this site. DS: Summary Hospital Course Hospital Course: HPI: Katharina is a 57 y.o. Female who carries a dx of MDD, recurrent and epilepsy. She presented to [facility] ED on 05/06/2022 due to recent SA by OD 2 days prior and worsening depression. Attributes current presentation to non-adherence with dilantin and her father's in 04/04/22. Hospital course: On admission patient was cooperative and calm and restarted on medication Dilantin. Very soon, Patient reports feeling much better.? She says depression is gone and suicidality fully resolved.? She says it is because she is back on her Dilantin; off it she was starting to feel very confused and emotional and now back on it she is feeling back to her regular self.? She is sure that this is the only reason she got dysregulated and suicidal, was having run out of this medication.? Patient says I am not suicidal... I have a 19-year-old son with Asperger's...I'm not suicidal. Patient discussed the struggle she has been having with this medication, how insurance companies have changed and she has had a hard time getting her regular dose approved.? She says that her outpatient neurologist Dr. Yoo has been working to get it approved but it is been slow going.? She is also in between PCPs since the insurance change which is making her anxious.? Patient shares that she feels ready to go home.? She signed a 3 day notice.? However she expresses much gratitude for help received on the unit and help trying to get her medications squared away. 05/08 patient denies depression or any SI.? She is sure that she got dysregulated because she was running out of her Dilantin medication and without it she feels her mood was totally altered.? Back on the medication she reports feeling back to her regular self, she says now on the medication, she can feel it in her body.? 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 Patient is hopeful to get back on her regular Dilantin dose however insurance is making this difficult.? Patient feels ready to go home and back to her regular self.? She does however want to attend partial day program.? Patient talked about losing her father which is been sad event but patient feels that she is coping with it adequately.? She denies any prior SI 05/09 patient remains in good mood, no SI, ready to go home.? Wants partial day program.? However does not feel any need to remain on the unit.? [facility] agrees the patient is not in imminent risk for harm to self or others and her request for discharge honored.? Will diagnose with MEDICATION induced; Off Dilantin seizure medication which is now resolved (typewriter tester called insurance/pharmacy and Dilantin was approved/covered) Status at Discharge Functional status at discharge: independent ambulation Overall status at discharge: patient is back to baseline Time Spent with Patient Time attestation: Total time spent providing and/or coordinating discharge services: Time spent: Greater than 30 minutes Discharge Plan Discharge Anticipated Discharge Date/Time: 05/10/22 09:26 Patient Disposition: Home, Self-Care Discharge Diagnosis: medication/drug induced mood disorder, in full remission Referrals: therapy ([facility]) Conchita Nobles [Other] - 05/10/22 3:00 pm (telehealth ) Medication Management, ([facility]), Kaden Caputo [Other] - 05/16/22 11:20 am (telehealth ) [facility]aghan [Other] - 1 Week (Referral was submitted, if accepted PHP will be virtual Meaghan from [facility] PHP will be following up with Katharina to schedule an intake) Physician,Belen J [Primary Care Provider] - 1 Week (No current PCP) Discharge Medications: New cefuroxime axetil 250 mg Tablet 250 mg PO BID 3 Days Qty: 6 0RF phenytoin sodium extended 200 mg capsule 200 mg PO BID 30 Days Qty: 60 0RF Continued lorazepam 1 mg tablet 1 tab PO BEDTIME PRN (Reason: insomnia) Changed pantoprazole 20 mg tablet,delayed release (DR/EC) 20 mg PO DAILY 30 Days Qty: 30 2RF levothyroxine 88 mcg tablet 88 mcg PO DAILY 30 Days Qty: 30 0RF escitalopram oxalate 20 mg tablet 20 mg PO DAILY 30 Days Qty: 30 0RF quetiapine 50 mg tablet 50 mg PO BEDTIME PRN (Reason: Anxiety) 30 Days Qty: 30 0RF Discontinued phenytoin sodium extended 100 mg capsule 2 cap PO DAILY Discharge Orders: Discharge Order (Routine); Ordered 05/10/22 Ordered By: Juan Malik Diet: Advance to usual diet Activity on Discharge: As tolerated Stand Alone Forms: Patient Portal Discharge page, Community Support Care Plan Goals: Maintain mood and safe behaviors Take medications as prescribed Practice coping skills Continue with outpatient providers and reach out to them as needed Health Concerns: Mood stability and behaviors Seizure Disorder Plan of Treatment: Follow up with your PCP, psychiatric provider and other outpatient providers regarding above concerns Take medications as prescribed Assessment: Risk assessment at time of discharge:? Patient was interviewed prior to discharge and found to be fully oriented and without any SI or HI. Patient has insight and demonstrates good judgment in terms of wanting to pursue treatment. Patient is not in imminent risk of harm to self or others and has a safety plan that includes presenting to the closest ER or calling 911 if feeling unsafe.? Patient has been observed closely by nursing and unit staff throughout admission; patient has not engaged in any behaviors that suggest dangerousness to self or others and has demonstrated appropriate behaviors and impulse control Discharge Date/Time: 05/10/22 13:05
[2022-05-10 08:30] VITALS: BP 130/63; PULSE 76; TEMP 36.8
[2022-05-10] MEDS: Omeprazole 20 MG CAPSULE.DR PO (08:50)
[2022-05-10] MEDS: Escitalopram Oxalate 20 MG TABLET PO (08:50)
[2022-05-10] MEDS: Levothyroxine Sodium 88 MCG TABLET PO (08:50)
[2022-05-10] MEDS: Phenytoin Sodium Extended 100 MG CAPSULE 200 MG PO (08:51)
== END 2022-05-10 13:05 | disposition home or self-care (01) | DRG 751 ==
LOC: HO.ED 05-07 15:47 → HO.PM5 05-07 15:59
PROVIDERS: Emergency Medicine; Admitting Provider Psychiatry & Neurology Psychiatry; Emergency Provider Emergency Medicine; Visit Provider Psychiatry & Neurology Psychiatry
DX: F33.1 Major depressive disorder, recurrent, moderate (principal); G40.909 Epilepsy, unspecified, not intractable, without status epilepticus; F43.12 Post-traumatic stress disorder, chronic; N39.0 Urinary tract infection, site not specified; Z20.822 Contact with and (suspected) exposure to COVID-19; Z79.890 Hormone replacement therapy; Z79.899 Other long term (current) drug therapy
CPT/HCPCS: 36415; 73620; 80053; 80185; 80307; 81001; 85025; 85610; 87635; 93005; 99285; Q0163

== ENCOUNTER 2022-05-30 21:40 | Emergency (ER) | payer OTHER, SELFPAY ==
[2022-05-30 23:08] VITALS: BP 138/73; PULSE 93; RESP 20; TEMP 36.9; O2SAT 96; BMI 35.5
[2022-05-30 23:28] LABS: Appearance Urine Clear; Color Urine Yellow; Glucose Urine UA Negative (Negative); Leukocyte Esterase Urine Moderate (2+) (Negative); Nitrite Urine Negative (Negative); UMIC TRIGGER UACC YES; Urine Blood Negative (Negative); Urine Ketones Negative (Negative); Urine Protein Negative (Neg-Trace)
[2022-05-30 23:53] LABS: Bacteria Urine None Seen (None Seen); Hyaline Casts Urine 0-2 /LPF (0-2); RBC Urine 0-2 /HPF (0-2); UACC Culture Trigger YES
== END 2022-05-31 09:45 | disposition left against medical advice (07) ==
PROVIDERS: Emergency Provider Emergency Medicine
DX: R35.0 Frequency of micturition (principal); R41.0 Disorientation, unspecified
CPT/HCPCS: 81001; 87086; 99282; 99283

== ENCOUNTER 2022-08-05 17:37 | Emergency (ER) | payer OTHER, SELFPAY ==
--- NOTE | ~2022-08-05 | CT_ITS ---
EXAMINATION: HEAD CT WITHOUT CONTRAST CERVICAL SPINE CT WITHOUT CONTRAST CLINICAL INFORMATION: Fall, head injury COMPARISON: None. Correlation MRI 10/14/2019 TECHNIQUE: Contiguous axial imaging of the head was performed without the administration of IV contrast. Axial multidetector volumetric images were also performed through the cervical spine without contrast. Multiplanar reconstructed images in coronal and sagittal orientations were submitted. DOSE: 1138 mGy-cm FINDINGS: HEAD: There is no evidence of acute intracranial hemorrhage or edematous territorial infarction. No abnormal mass-effect or midline shift. No extra-axial fluid collections. [place]una to white matter differentiation is well preserved. The ventricles are normal in size and configuration. . No acute calvarial fracture. Ethmoid sinus mucosal thickening. The sinuses otherwise and mastoid air cells are clear. CERVICAL SPINE: There is anatomic alignment of the vertebral bodies and posterior elements. Mild leftward curvature of the spine. The atlantoaxial and atlantooccipital articulations are maintained. Vertebral body heights and are maintained. No evidence of acute fracture. Cervical spondylosis. Moderate to severe C5-C6, C6-C7 disc degeneration. No prevertebral soft tissue swelling. Visualized lung apices appear unremarkable. No suspicious thyroid findings.. CT/CT cervical spine wo IV con IMPRESSION: 1. No acute intracranial hemorrhage or edematous territorial infarction. 2. No CT evidence of acute fracture or malalignment in the cervical spine. 3. Cervical spondylosis.
--- NOTE | ~2022-08-05 | XR_ITS ---
EXAMINATION: 1. RADIOGRAPHS LUMBAR SPINE 2. RADIOGRAPHS SACRUM/COCCYX CLINICAL INFORMATION: Pain after fall COMPARISON: None TECHNIQUE: 3 views of the lumbar spine and 2 views of the sacrum/coccyx were obtained FINDINGS: 5 nonrib-bearing lumbar vertebral bodies are visualized. There is mild levoscoliosis of the lumbar spine. Lumbar vertebral body heights are maintained. Lumbar disc spaces are relatively well-maintained. Mild degenerative changes of the posterior elements of the lower lumbar spine. The pelvic ring is intact. No gross fracture of the sacrum or coccyx. Sacroiliac joints are symmetric. No gross fracture or dislocation of either hip. XR/XR lumbar spine 2-3V IMPRESSION: 1. Mild degenerative changes of the lower lumbar spine. No compression deformity. 2. No fracture of the sacrum or coccyx.
--- NOTE | ~2022-08-05 | CT_ITS ---
EXAMINATION: HEAD CT WITHOUT CONTRAST CERVICAL SPINE CT WITHOUT CONTRAST CLINICAL INFORMATION: Fall, head injury COMPARISON: None. Correlation MRI 10/14/2019 TECHNIQUE: Contiguous axial imaging of the head was performed without the administration of IV contrast. Axial multidetector volumetric images were also performed through the cervical spine without contrast. Multiplanar reconstructed images in coronal and sagittal orientations were submitted. DOSE: 1138 mGy-cm FINDINGS: HEAD: There is no evidence of acute intracranial hemorrhage or edematous territorial infarction. No abnormal mass-effect or midline shift. No extra-axial fluid collections. [place] to white matter differentiation is well preserved. The ventricles are normal in size and configuration. . No acute calvarial fracture. Ethmoid sinus mucosal thickening. The sinuses otherwise and mastoid air cells are clear. CERVICAL SPINE: There is anatomic alignment of the vertebral bodies and posterior elements. Mild leftward curvature of the spine. The atlantoaxial and atlantooccipital articulations are maintained. Vertebral body heights and are maintained. No evidence of acute fracture. Cervical spondylosis. Moderate to severe C5-C6, C6-C7 disc degeneration. No prevertebral soft tissue swelling. Visualized lung apices appear unremarkable. No suspicious thyroid findings.. CT/CT head/brain wo IV con IMPRESSION: 1. No acute intracranial hemorrhage or edematous territorial infarction. 2. No CT evidence of acute fracture or malalignment in the cervical spine. 3. Cervical spondylosis.
--- NOTE | ~2022-08-05 | XR_ITS ---
EXAMINATION: 1. RADIOGRAPHS LUMBAR SPINE 2. RADIOGRAPHS SACRUM/COCCYX CLINICAL INFORMATION: Pain after fall COMPARISON: None TECHNIQUE: 3 views of the lumbar spine and 2 views of the sacrum/coccyx were obtained FINDINGS: 5 nonrib-bearing lumbar vertebral bodies are visualized. There is mild levoscoliosis of the lumbar spine. Lumbar vertebral body heights are maintained. Lumbar disc spaces are relatively well-maintained. Mild degenerative changes of the posterior elements of the lower lumbar spine. The pelvic ring is intact. No gross fracture of the sacrum or coccyx. Sacroiliac joints are symmetric. No gross fracture or dislocation of either hip. XR/XR sacrum coccyx min 2V IMPRESSION: 1. Mild degenerative changes of the lower lumbar spine. No compression deformity. 2. No fracture of the sacrum or coccyx.
[2022-08-05 17:54] VITALS: BP 150/94; BP 154/78; PULSE 73; PULSE 88; RESP 15; O2SAT 98; BMI 33.9
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
[2022-08-05] MEDS: oxyCODONE HCl Immed Release 5 MG TABLET PO (18:46)
== END 2022-08-05 19:52 | disposition home or self-care (01) ==
PROVIDERS: Emergency Provider Emergency Medicine; PCP Internal Medicine
DX: S09.90XA Unspecified injury of head, initial encounter (principal); S30.0XXA Contusion of lower back and pelvis, initial encounter; V78.4XXA Person boarding or alighting from bus injured in noncollision transport accident, initial encounter; Y93.89 Activity, other specified; Y92.521 Bus station as the place of occurrence of the external cause; Y99.9 Unspecified external cause status
CPT/HCPCS: 70450; 72100; 72125; 72220; 99283; 99284

== ENCOUNTER 2022-08-06 09:06 | Observation (INO) | payer OTHER, SELFPAY ==
[2022-08-06] VITALS (11 sets, daily range): BP systolic 124–166; BP diastolic 60–75; PULSE 67–88; RESP 12–18; TEMP 36–37.1; O2SAT 94–98; BMI 34.7; BMI 34.0
--- NOTE | ~2022-08-06 | XR_ITS ---
EXAMINATION: XR CHEST CLINICAL INFORMATION: Dizziness. COMPARISON: None TECHNIQUE: Frontal view of the chest was obtained. FINDINGS: No significant abnormality is noted involving the heart, lungs, mediastinum, bony thorax or soft tissues. XR/XR chest 1V IMPRESSION: No acute cardiopulmonary process.
--- NOTE | ~2022-08-06 | CT_ITS ---
EXAMINATION: CT HEAD WITHOUT CONTRAST CLINICAL INFORMATION: Head trauma yesterday. COMPARISON: 07/26/[address] scan. TECHNIQUE: Contiguous axial imaging was performed from the skull base to vertex without intravenous administration of contrast. Coronal and sagittal reformatted images were obtained. This CT examination was performed using dose optimization techniques as appropriate, variously including the following: *Automated exposure control *Adjustment of mA and/or kV according to patient size (this includes techniques or standardized protocols for targeted exams where dose is matched to indication/reason for exam; i.e. extremities or head) *Use of iterative reconstruction technique DLP: 703 mGy-cm FINDINGS: The cortical sulci are normal. The lateral ventricles are symmetrical. The third and fourth ventricles are in their normal midline position. The basilar and prepontine cisterns are unremarkable. There is no acute intra or extracerebral abnormality. There is no mass effect or midline shift. Small subgaleal hematoma is seen midline in the superior posterior parietal region without significant change. No significant underlying abnormality. Sections through the bony calvarium are unremarkable. The paranasal sinuses are clear. Mild to moderate mucosal thickening is seen in the ethmoid sinuses, left greater than right as well as inferiorly in the right maxillary sinus. The bony orbits and orbital contents are unremarkable. CT/CT head/brain wo IV con IMPRESSION: 1. No acute intracranial pathology. 2. Small subgaleal hematoma without underlying abnormality and no significant change. 3. Mild to moderate inflammatory changes in the ethmoid and right maxillary sinuses.
--- NOTE | 2022-08-06 09:30 | ED.GENADULT ---
HPI - General Adult General Chief complaint: General Medical Stated complaint: DIZZY,NAUSEA,VOMITNG S/P FALL OFF BUS T-1,SEEN T-1 Time Seen by Provider: 08/06/22 09:20 Source: patient and EMS Mode of arrival: EMS History of Present Illness HPI narrative: 57-year-old female with past medical history of PTSD, epilepsy, depression with psychotic features, presenting to the ED complaining of continued room spinning dizziness/feeling off balance and nausea s/p head strike yesterday. Patient states was walking on to [employer] bus when lost balance falling backwards striking head on pavement without LOC, was evaluated in our ED after incident, had negative head CT/x-rays was discharged home. Reports dizziness worse with position changes/head movement. Reports minimal headache. Denies vision change/loss, new or worsening neck/back pain, CP/SOB, abdominal pain, numbness, tingling, urine incontinence/retention. Denies taking anticoagulation Onset (ago): day(s) Related Data Home Medications Medication Instructions Recorded Confirmed lorazepam 0.5 mg tablet (Ativan) 1 tab PO TID 07/22/22 07/22/22 melatonin 5 mg tablet 5 mg PO BEDTIME PRN Sleep 07/22/22 07/22/22 pantoprazole 20 mg tablet,delayed 1 tab PO DAILY 07/22/22 07/22/22 release phenytoin sodium extended 200 mg 200 mg PO 1XD 07/22/22 07/22/22 capsule phenytoin sodium extended 300 mg 300 mg PO BEDTIME 07/22/22 07/22/22 capsule Previous Rx's Medication Instructions Recorded escitalopram oxalate 20 mg tablet 20 mg PO DAILY 30 days #30 tabs 05/09/22 levothyroxine 88 mcg tablet 88 mcg PO DAILY 30 days #30 tabs 05/09/22 quetiapine 50 mg tablet 50 mg PO BEDTIME PRN Anxiety 30 05/09/22 days #30 tabs quetiapine 25 mg tablet 25 mg PO DAILY #30 tabs 07/29/22 Allergies Allergy/AdvReac Type Severity Reaction Status Date / Time lamotrigine [From LAMICTAL] Allergy Mild SHORTNESS Verified 08/06/22 09:16 OF BREATH adhesive Allergy Unknown Unknown Verified 08/06/22 09:16 cat dander [CATS] Allergy Unknown Unknown Verified 08/06/22 09:16 cheese [CHEESE] Allergy Unknown UNKNOWN Verified 08/06/22 09:16 dog dander [DOGS] Allergy Unknown unk Verified 08/06/22 09:16 mold [MOLD] Allergy Unknown UNKNOWN Verified 08/06/22 09:16 pollen extracts [POLLEN] Allergy Unknown UNKNOWN Verified 08/06/22 09:16 ragweed pollen [RAGWEED] Allergy Unknown UNKNOWN Verified 08/06/22 09:16 tomato [TOMATO] Allergy Unknown UNKNOWN Verified 08/06/22 09:16 Review of Systems Review of Systems: Constitutional: No Fever, No Chills, No Fatigue, No Malaise ENT/Mouth: No Hearing loss, No Ear Pain, No Nasal Congestion, No sore throat, No Rhinorrhea, No Swallowing Difficulty Eyes: No Eye Pain, No Swelling, No Redness, No Vision Changes Cardiovascular: No Chest Pain, No SOB, No Edema, No Palpitations Respiratory: No Cough, No Sputum, No Dyspnea Gastrointestinal: + Nausea, No Vomiting, No Diarrhea, No Constipation, No Abdominal pain Genitourinary: No Dysuria, No Urinary Frequency, No Hematuria, No Urinary Incontinence/retention, No Flank Pain, No Urinary Flow Changes, No Hesitancy Musculoskeletal: No joint pain, No Myalgias, No Joint Swelling Skin: No Skin Lesions, No rash Neuro: No Weakness, No Numbness, No Paresthesias, No Loss of Consciousness, + Dizziness, +mild Headache Yes all other systems are reviewed and are negative Constitutional: Constitutional: Reports as per HPI Neurologic: Denies Abnormal speech present PMFSH Past Medical History Attestation statement: The following information was validated with the patient. Medical History Chronic post-traumatic stress disorder (PTSD) Epilepsy Major depression with psychotic features Social History Social History Household Members: None Housing: Condominium Do you presently have visiting nurse or other home services: No Patient Tobacco Use Status: Former Tobacco user Advance Directives: No service: No Sexual orientation: Straight/Heterosexual Physical Exam ED Vital Signs: Vital Signs - 24 hr 08/06/22 09:16 08/06/22 10:47 08/06/22 10:49 Temperature 98.7 F Pulse Rate 77 70 80 Respiratory Rate 18 Blood Pressure 130/70 134/69 131/69 Pulse Oximetry 98 Oxygen Delivery Method Room Air 08/06/22 10:51 08/06/22 12:00 08/06/22 14:07 Temperature 97.8 F Pulse Rate 86 73 73 Respiratory Rate 18 12 Blood Pressure 124/68 146/71 H 143/75 H Pulse Oximetry 96 98 Oxygen Delivery Method Room Air Room Air 08/06/22 16:00 Temperature 97.9 F Pulse Rate 67 Respiratory Rate 18 Blood Pressure 134/70 Pulse Oximetry 95 Oxygen Delivery Method Room Air BMI result Body Mass Index 34.7 Const General: cooperative, healthy appearing, no acute distress, alert and awake Orientation/consciousness: patient oriented x3 Limitations: no limitations HENMT Head: Yes normal to inspection, Yes atraumatic, No Tan's sign and No raccoon eyes Ears: hearing grossly normal bilaterally General nose exam: Normal external nose present Face and sinus: Yes normal facial exam Throat: Yes posterior oropharynx normal, Yes tonsils normal and Yes uvula midline Eyes General: appearance normal, both eyes and all related structures Pupils: Equal, round and reactive pupils present EOM: EOMs intact bilaterally Neck Other: No midline cervical spinous Neck: Yes normal visual inspection and Yes no meningeal signs Resp Effort & Inspection: normal respiratory effort and no respiratory distress Auscultation: clear to auscultation bilaterally, no crackles, no rales, no rhonchi and no wheezes Cardio Rate: regular rate Heart sounds: S1 normal heart sound present and S2 normal heart sound present GI Inspection: Yes normal to inspection Palpation (GI): Soft to palpation, nontender, no guarding and not rigid General: Yes no CVA tenderness Back/Spine/Pelvis Other: No midline thoracic/lumbar spinous tenderness/step-off or deformity Back: no CVA tenderness Skin Rashes: no rashes Wounds: no wounds Neuro Other: + Dizziness elicited on position changes. Gait unsteady. + fatigable right-sided nystagmus General: patient oriented x3, tone normal, moves all extremities, no meningeal signs, no focal motor deficits and CN's II-XI intact bilaterally Cranial nerves: Yes Equal, round and reactive pupils present Cognition (Neuro): normal cognition Speech: No Abnormal speech present Motor exam (neuro): 5/5 motor strength present throughout and Pronator motor function not present Coordination: [id number] test normal Extrem General: Yes normal to inspection Course Course Course Narrative: -1143--patient reports mild symptomatic improvement in dizziness, however when got up to use the bathroom felt dizzy. Will give Benadryl and re-evaluate -no leukocytosis. Labs otherwise reassuring. Troponin negative XR chest 1V IMPRESSION: No acute cardiopulmonary process. -1327--orthostatic vital signs negative. Patient ambulated in the ED now with steady gait, minimal dizziness elicited upon head movement. Will give p.o. Ativan and re-evaluate. Low suspicion for IC/cerebellar pathology -1535--patient ambulated again in the ED with the nurse, unsteady on feet, fell backwards into bed. Case discussed with Dr. Luther, will repeat Head CT to eval for ?delayed bleed, low suspicion for cerebellar infarct, not consistent with history. Patient will be admitted if symptoms do not improve CT head/brain wo IV con IMPRESSION: 1.? No acute intracranial pathology. 2. Small subgaleal hematoma without underlying abnormality and no significant change. 3. Mild to moderate inflammatory changes in the ethmoid and right maxillary sinuses. >1726--on re-evaluation patient reports continued dizziness worse with position changes, feels unsafe for discharge home as lives home alone. Plan to admit for further management Medications Administered Discontinued Medications Generic Name Dose Route Start Last Admin Trade Name Kavitha PRN Reason Stop Dose Admin Acetaminophen 650 mg 08/06/22 09:40 08/06/22 10:43 Acetaminophen 325 Mg Tablet PO 08/06/22 09:41 650 mg ONCE ONE Administration Diphenhydramine HCl 12.5 mg 08/06/22 11:42 08/06/22 12:20 Diphenhydramine Hcl 50 Mg/Ml Vial IVPUSH 08/06/22 11:43 12.5 mg ONCE ONE Administration Sodium Chloride 1,000 mls @ 999 mls/hr 08/06/22 09:45 08/06/22 14:09 Ns IV 08/06/22 10:45 Infused .Q1H1M LIZZIE Infusion Sodium Chloride 1,000 mls @ 999 mls/hr 08/06/22 15:45 08/06/22 15:42 Ns IV 08/06/22 16:45 999 mls/hr .Q1H1M LIZZIE Administration Lorazepam 1 mg 08/06/22 13:26 08/06/22 14:09 Lorazepam 1 Mg Tablet PO 08/06/22 13:27 1 mg ONCE ONE Administration Meclizine HCl 25 mg 08/06/22 09:40 08/06/22 10:43 Meclizine Hcl 25 Mg Tablet PO 08/06/22 09:41 25 mg ONCE ONE Administration Ondansetron HCl 4 mg 08/06/22 09:40 08/06/22 10:44 Ondansetron Hcl 4 Mg/2 Ml Vial IVPUSH 08/06/22 09:41 4 mg ONCE ONE Administration Medical Decision Making Medical Decision Making MDM Narrative: 57-year-old female with past medical history of PTSD, epilepsy, depression with psychotic features, presenting to the ED complaining of continued room spinning dizziness/feeling off balance and nausea s/p head strike yesterday. On exam vital signs stable, NAD, nontoxic appearing, no evidence of head trauma, no midline spinous tenderness, + dizziness elicited on position changes, unsteady gait. Concern for concussion vs BPPV. Lower suspicion for cerebellar infarct/bleed Plan: EKG, labs, CXR, UA, IVF, meclizine/Zofran, re-evaluate Differential Diagnosis Differential Diagnoses: The differential diagnosis associated with the presentation includes Admission/Observation Consideration of admission/observation: Escalation of care including admission/observation considered Lab Data Result Diagrams: 08/06/22 10:34 08/06/22 10:34 Labs: Lab Results 08/06/22 08/06/22 08/06/22 Range/Units 10:34 10:34 10:34 WBC 8.1 (4.8-10.8) X10*3/uL RBC 4.33 (4.20-5.50) X10*6/uL Hgb 13.4 (12.0-16.0) g/dl Hct 38.8 (37.0-47.0) % MCV 89.6 (80.0-98.0) fL MCH 30.9 (27.0-33.0) pg MCHC 34.5 (31.0-35.0) g/dl RDW 12.0 (11.0-16.0) % Plt Count 237 (160-400) X10*3/uL MPV 8.7 L (9.4-12.3) fL Immature Gran % (Auto) 0.2 (0.0-0.4) % Neut % (Auto) 81.2 H (45-73) % Lymph % (Auto) 9.6 L (20-40) % Richardson % (Auto) 7.3 (2-11) % Eos % (Auto) 1.2 (0-4) % Baso % (Auto) 0.5 (0-2) % Lymph # (Auto) 0.8 L (1.2-4.9) X10*3/uL Richardson # (Auto) 0.6 (0.1-1.2) X10*3/uL Eos # (Auto) 0.1 (0.0-0.4) X10*3/uL Baso # (Auto) 0.0 (0.0-0.2) X10*3/uL Abs Immat Gran (auto) 0.02 (0.00-0.03) X10*3/uL Absolute Neuts (auto) 6.6 (2.0-8.3) x10*3/uL Absolute Nucleated RBC 0.000 (0.0-0.012) X10*3/uL Nucleated RBC % (auto) 0.0 (0.0-0.2) /100WBC PT (10.0-13.1) SEC INR (0.9-1.1) Sodium 138 (135-145) mmol/L Potassium 4.1 (3.3-5.1) mmol/L Chloride 106 (96-108) mmol/L Carbon Dioxide 24 (22-29) mmol/L Anion Gap 12 (12-20) BUN 11 (9-16) mg/dL Creatinine 0.76 (0.5-1.4) mg/dL Estim Creat Clear Calc 95.0 Estimated GFR > 60 Random Glucose 127 H (60-115) mg/dL Calcium 8.6 (8.4-10.2) mg/dL Magnesium 1.9 (1.6-2.6) mg/dL Total Bilirubin 0.4 (0.0-1.0) mg/dL Direct Bilirubin < 0.2 (0.0-0.5) mg/dL AST 15 (5-31) U/L ALT 11 (0-31) U/L Alkaline Phosphatase 102 (39-117) U/L Troponin I High Sens 3.7 (<3.5-17.0) ng/L Total Protein 6.8 (6.5-8.0) g/dL Albumin 3.9 (3.5-5.0) g/dL Urine Color Urine Appearance Urine pH (5.0-9.0) Ur Specific [place] (1.005-1.025) Urine Protein (Neg-Trace) mg/dL Urine Glucose (UA) (Negative) mg/dL Urine Ketones (Negative) mg/dL Urine Blood (Negative) Urine Nitrite (Negative) Ur Leukocyte Esterase (Negative) Urine RBC (0-2) /HPF Urine WBC (0-5) /HPF Ur Squamous Epith Cells (0-2) /HPF Urine Bacteria (None Seen) Hyaline Casts (0-2) /LPF COVID-19 (MEET) (Negative) COVID-19 Clin Com 08/06/22 08/06/22 08/06/22 Range/Units 10:34 10:40 11:27 WBC (4.8-10.8) X10*3/uL RBC (4.20-5.50) X10*6/uL Hgb (12.0-16.0) g/dl Hct (37.0-47.0) % MCV (80.0-98.0) fL MCH (27.0-33.0) pg MCHC (31.0-35.0) g/dl RDW (11.0-16.0) % Plt Count (160-400) X10*3/uL MPV (9.4-12.3) fL Immature Gran % (Auto) (0.0-0.4) % Neut % (Auto) (45-73) % Lymph % (Auto) (20-40) % Richardson % (Auto) (2-11) % Eos % (Auto) (0-4) % Baso % (Auto) (0-2) % Lymph # (Auto) (1.2-4.9) X10*3/uL Richardson # (Auto) (0.1-1.2) X10*3/uL Eos # (Auto) (0.0-0.4) X10*3/uL Baso # (Auto) (0.0-0.2) X10*3/uL Abs Immat Gran (auto) (0.00-0.03) X10*3/uL Absolute Neuts (auto) (2.0-8.3) x10*3/uL Absolute Nucleated RBC (0.0-0.012) X10*3/uL Nucleated RBC % (auto) (0.0-0.2) /100WBC PT 12.6 (10.0-13.1) SEC INR 1.1 (0.9-1.1) Sodium (135-145) mmol/L Potassium (3.3-5.1) mmol/L Chloride (96-108) mmol/L Carbon Dioxide (22-29) mmol/L Anion Gap (12-20) BUN (9-16) mg/dL Creatinine (0.5-1.4) mg/dL Estim Creat Clear Calc Estimated GFR Random Glucose (60-115) mg/dL Calcium (8.4-10.2) mg/dL Magnesium (1.6-2.6) mg/dL Total Bilirubin (0.0-1.0) mg/dL Direct Bilirubin (0.0-0.5) mg/dL AST (5-31) U/L ALT (0-31) U/L Alkaline Phosphatase (39-117) U/L Troponin I High Sens (<3.5-17.0) ng/L Total Protein (6.5-8.0) g/dL Albumin (3.5-5.0) g/dL Urine Color Yellow Urine Appearance Clear Urine pH 6.0 (5.0-9.0) Ur Specific [place] 1.010 (1.005-1.025) Urine Protein Negative (Neg-Trace) mg/dL Urine Glucose (UA) Negative (Negative) mg/dL Urine Ketones Negative (Negative) mg/dL Urine Blood Negative (Negative) Urine Nitrite Negative (Negative) Ur Leukocyte Esterase Trace H (Negative) Urine RBC 0-2 (0-2) /HPF Urine WBC 0-5 (0-5) /HPF Ur Squamous Epith Cells 3-5 (0-2) /HPF Urine Bacteria None Seen (None Seen) Hyaline Casts 0-2 (0-2) /LPF COVID-19 (MEET) Negative (Negative) COVID-19 Clin Com See Note Discharge Plan Discharge Clinical Impression: Post-concussion syndrome Patient Disposition: Admitted As Inpatient
--- NOTE | 2022-08-06 09:40 | ECG_ITS ---
Test Reason : dizziness Blood Pressure : / mmHG Vent. Rate : 073 BPM Atrial Rate : 073 BPM P-R Int : 152 ms QRS Dur : 074 ms QT Int : 364 ms P-R-T Axes : 002 011 025 degrees QTc Int : 401 ms Normal sinus rhythm Nonspecific ST and T wave abnormality Abnormal ECG When compared with ECG of 06-MAY-2022 04:00, anterior T inversions more prominent Referred By: Betzaida Parker Electronically Signed By:YASHIRA KAY
[2022-08-06 10:40] LABS: MANUAL DIFF FLAG NO
[2022-08-06 10:43] LABS: Basophils Percent Auto 0.5 % (0-2); Eosinophils Absolute Auto 0.1 X10*3/uL (0.0-0.4); Eosinophils Percent Auto 1.2 % (0-4); Hematocrit 38.8 % (37.0-47.0); Hemoglobin 13.4 g/dl (12.0-16.0); Imm Gran Abs Auto 0.02 X10*3/uL (0.00-0.03); Imm Gran Pct Auto 0.2 % (0.0-0.4); Lymphocytes Absolute Auto 0.8 X10*3/uL (1.2-4.9); Lymphocytes Percent Auto 9.6 % (20-40); Mean Corpuscular HGB Conc 34.5 g/dl (31.0-35.0); Mean Corpuscular Hemoglobin 30.9 pg (27.0-33.0); Mean Corpuscular Volume 89.6 fL (80.0-98.0); Mean Platelet Volume 8.7 fL (9.4-12.3); Monocytes Absolute Auto 0.6 X10*3/uL (0.1-1.2); Monocytes Percent Auto 7.3 % (2-11); Neutrophils Absolute Auto 6.6 x10*3/uL (2.0-8.3); Neutrophils Percent Auto 81.2 % (45-73); Platelet Count 237 X10*3/uL (160-400); Red Blood Count 4.33 X10*6/uL (4.20-5.50); White Blood Count 8.1 X10*3/uL (4.8-10.8)
[2022-08-06] MEDS: Meclizine HCl 25 MG TABLET PO (10:43)
[2022-08-06] MEDS: Acetaminophen 325 MG TABLET 650 MG PO (10:43)
[2022-08-06] MEDS: ondansetron HCL 4 MG/2 ML VIAL IVPUSH (10:44)
[2022-08-06 10:48] LABS: INTERNATIONAL NORM RATIO 1.1 (0.9-1.1); Prothrombin Time 12.6 SEC (10.0-13.1)
--- NOTE | 2022-08-06 10:55 | PC.NURSE ---
patient a&o3, iv inserted, labs drawn, ekg performed, nasal swab performed, pt orthostats performed, pt medicated per order, call isabel within reach, will continue to monitor
[2022-08-06] MEDS: 0.9 % Sodium Chloride 1,000 ML 999 ML IV ×2 (10:56→15:42)
--- NOTE | 2022-08-06 10:56 | PC.NURSE ---
orthostats while performing patients orthostats, upon standing patient got very dizzy and fell back onto the bed, pt states she just couldnt stand she was too dizzy, this nurse assisted the patient to standing position a second time and performed standing orthostats- pt tolerated the second time.
[2022-08-06 11:06] LABS: Troponin-I High Sensitivity 3.7 ng/L (<3.5-17.0)
[2022-08-06 11:08] LABS: COVID-19 Test Negative (Negative); IDNOW Serial# 55D5AD1C
[2022-08-06 11:11] LABS: Alanine Aminotransferase 11 U/L (0-31); Albumin Level 3.9 g/dL (3.5-5.0); Alkaline Phosphatase 102 U/L (39-117); Anion Gap 12 (12-20); Aspartate Amino Transferase 15 U/L (5-31); Bilirubin Direct < 0.2 mg/dL (0.0-0.5); Bilirubin Total 0.4 mg/dL (0.0-1.0); Blood Urea Nitrogen 11 mg/dL (9-16); Calcium 8.6 mg/dL (8.4-10.2); Carbon Dioxide 24 mmol/L (22-29); Chloride 106 mmol/L (96-108); Estimated Glomerular Filt Rate > 60; Glucose Random 127 mg/dL (60-115); Magnesium 1.9 mg/dL (1.6-2.6); Potassium 4.1 mmol/L (3.3-5.1); Sodium 138 mmol/L (135-145); Total Protein 6.8 g/dL (6.5-8.0)
[2022-08-06 11:35] LABS: Appearance Urine Clear; Color Urine Yellow; Glucose Urine UA Negative (Negative); Leukocyte Esterase Urine Trace (Negative); Nitrite Urine Negative (Negative); UMIC TRIGGER UACC YES; Urine Blood Negative (Negative); Urine Ketones Negative (Negative); Urine Protein Negative (Neg-Trace)
[2022-08-06 11:40] LABS: Bacteria Urine None Seen (None Seen); Hyaline Casts Urine 0-2 /LPF (0-2); RBC Urine 0-2 /HPF (0-2); WBC Urine 0-5 /HPF (0-5)
[2022-08-06] MEDS: diphenhydrAMINE HCL 50 MG/ML VIAL 12.5 MG IVPUSH (12:20)
--- NOTE | 2022-08-06 12:22 | PC.NURSE ---
pt a&ox3, pt still c/o 2-11/01 pain which increases with movement, pt medicated per order, vitals stable, will continue to monitor
[2022-08-06] MEDS: LORazepam 1 MG TABLET PO (14:09)
--- NOTE | 2022-08-06 14:34 | PC.NURSE ---
pt medicated with ativan per order
--- NOTE | 2022-08-06 15:18 | PC.NURSE ---
pt currently sleeping, will continue to monitor
--- NOTE | 2022-08-06 15:32 | PC.NURSE ---
pt was ambulated with this nurse per request of provider, patient stood and began to walk getting dizzy and fell backwards onto the bed into a sitting position stating she was too dizzy when she stood up, pt was encouraged to again stand to ambulate, pt was noted to have an unsteady gait when this nurse was walking with the patient, pt continued to complain being dizzy, provider was notified, will continue to monitor.
--- NOTE | 2022-08-06 15:43 | PC.NURSE ---
pt medicated per order
--- NOTE | 2022-08-06 17:25 | PC.NURSE ---
pt requested to ambulated to bathroom, provider at bedside, pt attempted to stand and go very dizzy and sat back down on the bed throwing herself backwards in the bed stating she was dizzy, pt then attempted a second time with assist to ambulate to the bathroom, pt also c/o lower back pain from laying on the stretcher, will continue to monitor.
--- NOTE | 2022-08-06 17:42 | PC.NURSE ---
patients IV fluids continue to run slowly.
--- NOTE | 2022-08-06 18:09 | P.HPHOSP_ITS ---
History of Present Illness Date of Service: 08/06/22 Attending physician on admission: Faby Orellana Chief Complaint: fall/vertiago 57-year-old female with pmhx of PTSD, epilepsy, depression with psychotic features-patient was yesterday in the ED status post fall from the bus stairs-patient said she was trying to get into the bus suddenly when she reached top step the she felt little unsteady and fell -she hit her head at when fell backward, yesterday had CT showed small subgaleal hematoma-repeat head CT today is similar. Patient says that she feels very unsteady with walking now and feels like everything spinning around her, generalized weak. She said that her father recently and she has feels very anxious since then, she was taking ativan for anxiety and she took Ativan before boarding to the pass. Denies any headache or blurred vision or any new weakness or numbness or nausea or vomiting. Denies any new complaint of chest pain or shortness of breath or abdominal pain or fever or chills Denies any cough Denies any weakness or numbness. Review of Systems Review of Systems: As above. [facility] Medical History Chronic post-traumatic stress disorder (PTSD) Epilepsy Major depression with psychotic features Pertinent family history: Father , father had diabetes. Social History (Updated 08/06/22 @ 18:31 by Faby Orellana MD) Household Members: None Housing: Condominium Do you presently have visiting nurse or other home services: No Alcohol intake: never Patient Tobacco Use Status: Former Tobacco user Use of substances other than those prescribed or required for medical reasons: No Advance Directives: No service: No Sexual orientation: Straight/Heterosexual Meds Allergies Allergy/AdvReac Type Severity Reaction Status Date / Time lamotrigine [From LAMICTAL] Allergy Mild SHORTNESS Verified 08/06/22 09:16 OF BREATH adhesive Allergy Unknown Unknown Verified 08/06/22 09:16 cat dander [CATS] Allergy Unknown Unknown Verified 08/06/22 09:16 cheese [CHEESE] Allergy Unknown UNKNOWN Verified 08/06/22 09:16 dog dander [DOGS] Allergy Unknown unk Verified 08/06/22 09:16 mold [MOLD] Allergy Unknown UNKNOWN Verified 08/06/22 09:16 pollen extracts [POLLEN] Allergy Unknown UNKNOWN Verified 08/06/22 09:16 ragweed pollen [RAGWEED] Allergy Unknown UNKNOWN Verified 08/06/22 09:16 tomato [TOMATO] Allergy Unknown UNKNOWN Verified 08/06/22 09:16 Active Medications: Current Medications Pharmacy Consult (Consult Rx Perform Med Rec) 1 each MISCELLANE ONCE STA Stop: 08/06/22 17:26 Sodium Chloride (0.9 % Sodium Chloride Flush 3 Ml Syringe) 3 ml IVFLUSH QSHIFT [facility] Home Medications Medication Instructions Recorded Confirmed Last Taken Type lorazepam 0.5 mg tablet (Ativan) 1 tab PO TID 07/22/22 08/06/22 08/06/22 History melatonin 5 mg tablet 5 mg PO BEDTIME PRN Sleep 07/22/22 08/06/22 Unknown History pantoprazole 20 mg tablet,delayed 1 tab PO DAILY 07/22/22 08/06/22 08/05/22 History release phenytoin sodium extended 100 mg 200 mg PO BEDTIME 08/06/22 08/06/22 08/05/22 History capsule (Dilantin Extended) phenytoin sodium extended 100 mg 300 mg PO DAILY 08/06/22 08/06/22 08/06/22 History capsule (Dilantin Extended) quetiapine 50 mg tablet 50 mg PO BEDTIME 08/06/22 08/06/22 08/05/22 History Physical Exam Vital Signs and Narrative: Vital Signs: Last Vital Signs Temp 97.9 F 08/06/22 16:00 Pulse 67 08/06/22 16:00 Resp 18 08/06/22 16:00 BP 134/70 08/06/22 16:00 Pulse Ox 95 08/06/22 16:00 O2 Del Method 08/06/22 16:00 BMI result Body Mass Index 34.7 Appearance: Alert.? Oriented X3.? not in distress.? Eyes: Pupils equal, round and reactive to light.? Sclera nonicteric.? ENT: Pharynx normal.? Moist mucous membranes. cvs: rrr, [id number] , no murmur res: clear to auscultation ,no rhonchii or wheezing abd: no rebound or guarding ,nt, bs present. ext pulses present , no cyanosis ,Gait well balanced well coordinated. neuro: axo3 , nonfocal. Results Labs CBC and Chem 7: 08/06/22 10:34 08/06/22 10:34 Labs: Laboratory Results - last 24 hr 08/06/22 08/06/22 08/06/22 10:34 10:34 10:34 MCV 89.6 MCH 30.9 MCHC 34.5 RDW 12.0 Plt Count 237 MPV 8.7 L Immature Gran % (Auto) 0.2 Neut % (Auto) 81.2 H Lymph % (Auto) 9.6 L Gillespie % (Auto) 7.3 Eos % (Auto) 1.2 Baso % (Auto) 0.5 Lymph # (Auto) 0.8 L Gillespie # (Auto) 0.6 Eos # (Auto) 0.1 Baso # (Auto) 0.0 Abs Immat Gran (auto) 0.02 Absolute Neuts (auto) 6.6 Absolute Nucleated RBC 0.000 Nucleated RBC % (auto) 0.0 PT INR Anion Gap 12 Estim Creat Clear Calc 95.0 Estimated GFR > 60 Random Glucose 127 H Calcium 8.6 Magnesium 1.9 Total Bilirubin 0.4 Direct Bilirubin < 0.2 AST 15 ALT 11 Alkaline Phosphatase 102 Troponin I High Sens 3.7 Total Protein 6.8 Albumin 3.9 Urine Color Urine Appearance Urine pH Ur Specific [place] Urine Protein Urine Glucose (UA) Urine Ketones Urine Blood Urine Nitrite Ur Leukocyte Esterase Urine RBC Urine WBC Ur Squamous Epith Cells Urine Bacteria Hyaline Casts COVID-19 (MEET) COVID-19 Clin Com 08/06/22 08/06/22 08/06/22 10:34 10:40 11:27 MCV MCH MCHC RDW Plt Count MPV Immature Gran % (Auto) Neut % (Auto) Lymph % (Auto) Gillespie % (Auto) Eos % (Auto) Baso % (Auto) Lymph # (Auto) Gillespie # (Auto) Eos # (Auto) Baso # (Auto) Abs Immat Gran (auto) Absolute Neuts (auto) Absolute Nucleated RBC Nucleated RBC % (auto) PT 12.6 INR 1.1 Anion Gap Estim Creat Clear Calc Estimated GFR Random Glucose Calcium Magnesium Total Bilirubin Direct Bilirubin AST ALT Alkaline Phosphatase Troponin I High Sens Total Protein Albumin Urine Color Yellow Urine Appearance Clear Urine pH 6.0 Ur Specific [place] 1.010 Urine Protein Negative Urine Glucose (UA) Negative Urine Ketones Negative Urine Blood Negative Urine Nitrite Negative Ur Leukocyte Esterase Trace H Urine RBC 0-2 Urine WBC 0-5 Ur Squamous Epith Cells 3-5 Urine Bacteria None Seen Hyaline Casts 0-2 COVID-19 (MEET) Negative COVID-19 Clin Com See Note Imaging Radiologist's Impressions: Impressions Chest X-Ray 08/06/22 09:48 IMPRESSION: No acute cardiopulmonary process. Head CT 08/06/22 16:29 IMPRESSION: 1. No acute intracranial pathology. 2. Small subgaleal hematoma without underlying abnormality and no significant change. 3. Mild to moderate inflammatory changes in the ethmoid and right maxillary sinuses. Assessment and Plan (1) Post-concussion syndrome: Status: Acute (2) Vertigo: Status: Acute Plan 57-year-old female with pmhx of PTSD, epilepsy, depression with psychotic features-s/p fall, sub clear hematoma-coming with possible vertigo. 1. Vertigo? Unclear etiology(may related to fall) Neuro checks Meclizine Hydration Neurology evaluation 2.PTSD, epilepsy, depression with psychotic features: Medication reconciliation pending. Will add psych consult since patient is very anxious and having difficulty coping with her father's recent . 3. Hypothyroidism: Medical reconciliation still pending DVT prophylaxis: Mechanical devices. Above management discussed with the patient in detail length she understand and in agreement with above plan. Time spent 70 minute, patient full code. Time Spent With Patient Time: Total time managing care of this patient today ____ minutes. Quality Stroke Does the patient have a stroke diagnosis?: No VTE Prior VTE?: No VTE Risk Level:: Medical - moderate - high VTE Device Contraindication: N/A - Device Ordered VTE Drug Contraindication: N/A - Med Ordered
--- NOTE | 2022-08-06 18:27 | PHA.MEDREC ---
Pharmacy Consult ? Medication Reconciliation Pharmacy has completed the medication reconciliation. spoke with pt. she takes brand name Dilantin but is ok to use our supply this evening
[2022-08-06] MEDS: Lactated Ringers 1,000 ML 80 ML IVCONT (18:53)
--- NOTE | 2022-08-06 20:02 | PC.NURSE ---
called S3, floor stated nurse will call back in about 5 minutes
[2022-08-06] MEDS: QUEtiapine Fumarate 50 MG TABLET PO (23:44)
[2022-08-07] MEDS: Melatonin 3 MG TABLET 6 MG PO (01:22)
[2022-08-07 03:30] VITALS: BP 146/65; PULSE 75; RESP 18; TEMP 36.6; O2SAT 95
[2022-08-07] MEDS: Omeprazole 20 MG CAPSULE.DR PO (06:16)
[2022-08-07] MEDS: Levothyroxine Sodium 88 MCG TABLET PO (06:16)
[2022-08-07 07:40] VITALS: BP 114/56; PULSE 76; RESP 16; TEMP 36.7; O2SAT 95
[2022-08-07] MEDS: QUEtiapine Fumarate 25 MG TABLET PO (09:15)
[2022-08-07] MEDS: LORazepam 0.5 MG TABLET PO ×3 (09:15→20:12)
[2022-08-07] MEDS: Escitalopram Oxalate 20 MG TABLET PO (09:15)
--- NOTE | 2022-08-07 11:00 | P.CNNE_ITS ---
History of Present Illness Data of Consult Service Date: 08/07/22 Primary Care Provider: Christiane Ogden MD HPI Reason for consult: Dizziness dizziness 57 years old woman with underlying diagnosis of epilepsy since she was a teenager. Her seizures mostly used to be partial or partial complex comprised of danger would type of feeling anxiety restlessness and sometime passing out. Sometime she also had generalized tonic clonic seizures. Seizures were were better controlled for many years until she was in mid 40s when they are worsened. She tried multiple medicines and at this time was taking Dilantin 500 mg a day. She was in hospital for an unrelated reason. She said that she was trying to enter a [employer] bus yesterday while holding something in her hands and at some point lost her balance while on the stairs and fell backwards on the road with her head hitting the road. She did not pass out. She was feeling dizzy and vertiginous since then. There was no confusion. She denied that this was seizure related. Review of Systems Review of Systems: No recent use of alcohol or change in medicine or new medicine. [facility] Past Medical History Medical History Chronic post-traumatic stress disorder (PTSD) Epilepsy Major depression with psychotic features Social History Social History (Updated 08/06/22 @ 18:31 by Faby Orellana MD) Household Members: None Housing: Condominium Do you presently have visiting nurse or other home services: No Alcohol intake: never Patient Tobacco Use Status: Former Tobacco user service: No Sexual orientation: Straight/Heterosexual Meds Allergies Allergy/AdvReac Type Severity Reaction Status Date / Time lamotrigine [From LAMICTAL] Allergy Mild SHORTNESS Verified 08/06/22 09:16 OF BREATH adhesive Allergy Unknown Unknown Verified 08/06/22 09:16 cat dander [CATS] Allergy Unknown Unknown Verified 08/06/22 09:16 cheese [CHEESE] Allergy Unknown UNKNOWN Verified 08/06/22 09:16 dog dander [DOGS] Allergy Unknown unk Verified 08/06/22 09:16 mold [MOLD] Allergy Unknown UNKNOWN Verified 08/06/22 09:16 pollen extracts [POLLEN] Allergy Unknown UNKNOWN Verified 08/06/22 09:16 ragweed pollen [RAGWEED] Allergy Unknown UNKNOWN Verified 08/06/22 09:16 tomato [TOMATO] Allergy Unknown UNKNOWN Verified 08/06/22 09:16 Active Medications: Current Medications Escitalopram Oxalate (Escitalopram Oxalate 20 Mg Tablet) 20 mg PO DAILY [facility] Last Admin: 08/07/22 09:15 Dose: 20 mg Lactated Ringer's (Lr) 1,000 mls @ 80 mls/hr IVCONT .[id number] [facility] Last Admin: 08/06/22 18:53 Dose: 80 mls/hr Levothyroxine Sodium (Levothyroxine Sodium 88 Mcg Tablet) 88 mcg PO DAILY@0630 [facility] Last Admin: 08/07/22 06:16 Dose: 88 mcg Lorazepam (Lorazepam 0.5 Mg Tablet) 0.5 mg PO TID [facility] Last Admin: 08/07/22 09:15 Dose: 0.5 mg Meclizine HCl (Meclizine Hcl 25 Mg Tablet) 25 mg PO Q6H PRN PRN Reason: Vertigo Melatonin (Melatonin 3 Mg Tablet) 6 mg PO BEDTIME PRN PRN Reason: Sleep Last Admin: 08/07/22 01:22 Dose: 6 mg Pt Own Dilantin 100 (Mg Capsule) 3 each PO DAILY [facility] Last Admin: 08/07/22 09:26 Dose: 3 each Pt Own Dilantin 100 (Mg Capsule) 2 each PO BEDTIME [facility] Omeprazole (Omeprazole 20 Mg Capsule.Dr) 20 mg PO DAILY@0630 [facility] Last Admin: 08/07/22 06:16 Dose: 20 mg Quetiapine Fumarate (Quetiapine Fumarate 25 Mg Tablet) 25 mg PO DAILY [facility] Last Admin: 08/07/22 09:15 Dose: 25 mg Quetiapine Fumarate (Quetiapine Fumarate 50 Mg Tablet) 50 mg PO BEDTIME [facility] Last Admin: 08/06/22 23:44 Dose: 50 mg Sodium Chloride (0.9 % Sodium Chloride Flush 3 Ml Syringe) 3 ml IVFLUSH QSHIFT [facility] Last Admin: 08/07/22 09:15 Dose: Not Given Home Medications Medication Instructions Recorded Confirmed Last Taken Type lorazepam 0.5 mg tablet (Ativan) 1 tab PO TID 07/22/22 08/06/22 08/06/22 History melatonin 5 mg tablet 5 mg PO BEDTIME PRN Sleep 07/22/22 08/06/22 Unknown History pantoprazole 20 mg tablet,delayed 1 tab PO DAILY 07/22/22 08/06/2208/05/22 History release phenytoin sodium extended 100 mg 200 mg PO BEDTIME 08/06/22 08/06/22 08/05/22 History capsule (Dilantin Extended) phenytoin sodium extended 100 mg 300 mg PO DAILY 08/06/22 08/06/22 08/06/22 History capsule (Dilantin Extended) quetiapine 50 mg tablet 50 mg PO BEDTIME 08/06/22 08/06/22 08/05/22 History Physical Exam Vital Signs: Vital Signs: Last Vital Signs Temp 98.0 F 08/07/22 07:40 Pulse 76 08/07/22 07:40 Resp 16 08/07/22 07:40 BP 114/56 L 08/07/22 07:40 Pulse Ox 95 08/07/22 07:40 O2 Del Method 08/07/22 07:40 BMI result Body Mass Index 34.0 Neuro: Other: She was alert and awake with normal spontaneity of speech fluency comprehension and anxious affect. Pupils were equal and reactive to light. Extraocular muscles were intact. Visual hernandez are full to threat. Face was symmetrical. There was no pronator drift. [id number] testing was okay. Deep tendon reflexes were absent with flexor plantars. Results Labs CBC & Chem 7: 08/06/22 10:34 08/06/22 10:34 Labs: BMP 08/06/22 10:34 Sodium 138 Potassium 4.1 Chloride 106 Carbon Dioxide 24 BUN 11 Creatinine 0.76 Calcium 8.6 Liver Function 08/06/22 Range/Units 10:34 Total Bilirubin 0.4 (0.0-1.0) mg/dL Direct Bilirubin < 0.2 (0.0-0.5) mg/dL AST 15 (5-31) U/L ALT 11 (0-31) U/L Alkaline Phosphatase 102 (39-117) U/L Albumin 3.9 (3.5-5.0) g/dL Urine 08/06/22 Range/Units 11:27 Urine Color Yellow Urine Appearance Clear Urine pH 6.0 (5.0-9.0) Ur Specific [place] 1.010 (1.005-1.025) Urine Protein Negative (Neg-Trace) mg/dL Urine Glucose (UA) Negative (Negative) mg/dL Her noncontrast head CT revealed mild cortical atrophy. CBC was okay. Metabolic profile was okay. Dilantin level was 0.6. I also noted that her multiple previous Dilantin levels were more than 25. Assessment and Plan (1) Post-concussion syndrome: Status: Acute 57 years old woman was suffering from dizziness not uncommon after falling and hitting head on the ground. She probably had mild concussion. As far as reason for fall is concerned, it seem like a mechanical 1 with loss of balance when she was holding something and trying to get into the bus. At the same time her Dilantin level is quite low, which raise possibility of a seizure but she said that this episode was not like her previous episodes of seizures. In any case, she was educated about vertigo and this type of problem. She was advised to be careful and avoid activities that could put her at risk of falling. She can go back to her previous medications and take them regularly. As far as issue of epilepsy is concerned, she should see a neurologist as an outpatient. (2) Vertigo: Status: Acute Time Spent With Patient Time: Total time managing care of this patient today ____ minutes. Procedures Date of Service Date of Service: 08/07/22
[2022-08-07 11:14] VITALS: BP 129/64; PULSE 76; RESP 18; TEMP 36.3; O2SAT 95
--- NOTE | 2022-08-07 14:17 | MHC.CM.PN ---
JANIS 08/07/22, EMR REVIEWED, CM MET W/PT WHO REPORTS SHE LIVES ALONE IN [facility] AND IS INDEP, DENIES USE OF DME AND DENIES HOME SERVICES OTHER THAN REMOTE THERAPY AND OUPT CM W/[facility]. PT REPORTS SHE IS CURRENTLY IN [facility] AND THEY ARE TRYING TO GET HER AN EXTENSION SHE ONLY HAS TWO DAYS LEFT, PT REPORTS SHE IS FEELING BETTER AND LESS ANXIOUS, PT DENIES NEED TO MEET W/CARE TEAM. TATYANA D/C HOME THURS AM VIA [facility]
[2022-08-07 15:02] VITALS: BP 135/65; PULSE 76; RESP 17; TEMP 36.6; O2SAT 94
--- NOTE | 2022-08-07 15:13 | HO.PM.IMPN ---
Subjective Subjective Date of Service: 08/09/22 Interval History: fall/vertiago Review of Systems still feels dizziness especially moving his head. Physical Exam Vital Signs: Vital Signs: Last Vital Signs Temp 97.8 F 08/07/22 15:02 Pulse 76 08/07/22 15:02 Resp 17 08/07/22 15:02 BP 135/65 08/07/22 15:02 Pulse Ox 94 08/07/22 15:02 O2 Del Method 08/07/22 15:02 BMI result Body Mass Index 34.0 ?Appearance: Alert.? Oriented X3.? not in distress.? Eyes: Pupils equal, round and reactive to light.? Sclera nonicteric.? ENT: Pharynx normal.? Moist mucous membranes. cvs: rrr, [id number] . res: clear to auscultation ,no rhonchii or wheezing abd: no rebound or guarding ,nt, bs present. ext pulses present , no cyanosis. neuro: axo3 , nonfocal. Objective Data Active Medications Escitalopram Oxalate (Escitalopram Oxalate 20 Mg Tablet) 20 mg PO DAILY [facility] Last Admin: 08/07/22 09:15 Dose: 20 mg Documented By: DIMA Lactated Ringer's (Lr) 1,000 mls @ 80 mls/hr IVCONT .[id number] [facility] Last Admin: 08/06/22 18:53 Dose: 80 mls/hr Documented By: LAURIE Levothyroxine Sodium (Levothyroxine Sodium 88 Mcg Tablet) 88 mcg PO DAILY@0630 [facility] Last Admin: 08/07/22 06:16 Dose: 88 mcg Documented By: FABRICIO Lorazepam (Lorazepam 0.5 Mg Tablet) 0.5 mg PO TID [facility] Last Admin: 08/07/22 09:15 Dose: 0.5 mg Documented By: DIMA Meclizine HCl (Meclizine Hcl 25 Mg Tablet) 25 mg PO Q6H PRN PRN Reason: Vertigo Melatonin (Melatonin 3 Mg Tablet) 6 mg PO BEDTIME PRN PRN Reason: Sleep Last Admin: 08/07/22 01:22 Dose: 6 mg Documented By: FABRICIO Pt Own Dilantin 100 (Mg Capsule) 3 each PO DAILY [facility] Last Admin: 08/07/22 09:26 Dose: 3 each Documented By: DIMA Pt Own Dilantin 100 (Mg Capsule) 2 each PO BEDTIME [facility] Omeprazole (Omeprazole 20 Mg Capsule.Dr) 20 mg PO DAILY@0630 [facility] Last Admin: 08/07/22 06:16 Dose: 20 mg Documented By: FABRICIO Quetiapine Fumarate (Quetiapine Fumarate 25 Mg Tablet) 25 mg PO DAILY [facility] Last Admin: 08/07/22 09:15 Dose: 25 mg Documented By: DIMA Quetiapine Fumarate (Quetiapine Fumarate 50 Mg Tablet) 50 mg PO BEDTIME [facility] Last Admin: 08/06/22 23:44 Dose: 50 mg Documented By: FABRICIO Sodium Chloride (0.9 % Sodium Chloride Flush 3 Ml Syringe) 3 ml IVFLUSH QSHIFT [facility] Last Admin: 08/07/22 09:15 Dose: Not Given Documented By: DIMA Non-Admin Reason: IV Running Labs CBC & Chem 7: 08/06/22 10:34 08/06/22 10:34 Assessment and Plan (1) Vertigo: Status: Acute (2) Post-concussion syndrome: Status: Acute Plan 57-year-old female with pmhx of PTSD, epilepsy, depression with psychotic features-s/p fall, sub clear hematoma-coming with possible vertigo. 1. Vertigo?? Unclear etiology(may related to fall) ?bppv Neuro checks Meclizine Hydration Neurology evaluation-possible mild concussion,patient was educated about vertigo and this type of problem.? She was advised to be careful and avoid activities that could put her at risk of falling.? She can go back to her previous medications and take them regularly.? As far as issue of epilepsy is concerned, she should see a neurologist as an outpatient. PT-may help with joaquina smiley 2.PTSD, epilepsy, depression with psychotic features: Medication reconciliation pending. Will add psych consult since patient is very anxious and having difficulty coping with her father's recent . 3. Hypothyroidism: Medical reconciliation still pending DVT prophylaxis:? Mechanical devices. ongoing inpatient need:bppv -?vertiago vs postconcusion Time Spent With Patient Time: Total time managing care of this patient today ____ minutes. Quality Stroke Does the patient have a stroke diagnosis?: No VTE Prior VTE?: No VTE Risk Level:: Medical - moderate - high VTE Device Contraindication: N/A - Device Ordered VTE Drug Contraindication: N/A - Med Ordered
[2022-08-07] MEDS: 0.9 % Sodium Chloride Flush 3 ML SYRINGE IVFLUSH (15:42)
[2022-08-07] MEDS: Lactated Ringers 1,000 ML 80 ML IVCONT (16:21)
[2022-08-07 19:03] VITALS: BP 144/74; PULSE 80; RESP 18; TEMP 36.9; O2SAT 95
[2022-08-07] MEDS: QUEtiapine Fumarate 50 MG TABLET PO (20:12)
[2022-08-08] VITALS: BP 131/66; PULSE 77; RESP 17; TEMP 36.6; O2SAT 95
[2022-08-08 04:00] VITALS: BP 111/59; PULSE 67; RESP 17; TEMP 36.4; O2SAT 96
[2022-08-08] MEDS: Lactated Ringers 1,000 ML 80 ML IVCONT (05:24)
[2022-08-08] MEDS: Omeprazole 20 MG CAPSULE.DR PO (05:24)
[2022-08-08] MEDS: Levothyroxine Sodium 88 MCG TABLET PO (05:25)
[2022-08-08 07:32] VITALS: BP 140/75; PULSE 76; RESP 16; TEMP 36.2; O2SAT 97
[2022-08-08] MEDS: LORazepam 0.5 MG TABLET PO (09:10)
[2022-08-08] MEDS: 0.9 % Sodium Chloride Flush 3 ML SYRINGE IVFLUSH (09:10)
[2022-08-08] MEDS: QUEtiapine Fumarate 25 MG TABLET PO (09:10)
[2022-08-08] MEDS: diphenhydrAMINE HCL 25 MG CAPSULE PO (09:10)
[2022-08-08] MEDS: Escitalopram Oxalate 20 MG TABLET PO (09:10)
--- NOTE | 2022-08-08 10:28 | P.DS_ITS ---
DS: Providers Provider Date of Service: 08/08/22 Date of admission: 08/06/22 18:03 Primary care physician: Christiane Ogden MD Consults: 08/06/22 18:03 Consult to Neurology Routine Consulting Provider: [facility] Reason for consultation: vertigo vs concussion vs subgaleal hematoma Has provider been notified: No DS: Diagnosis Discharge Diagnosis (1) Post-concussion syndrome: Status: Acute (2) Vertigo: Status: Acute (3) Rash: Status: Acute DS: Summary Hospital Course Hospital Course: 57-year-old female with pmhx of PTSD, epilepsy, depression with psychotic features-patient was yesterday in the ED status post fall from the bus stairs- patient said she was trying to get into the bus suddenly when she reached top step the she felt little unsteady and fell -she hit her head at when fell backward, yesterday had CT showed small subgaleal hematoma-repeat head CT today is similar. Patient says that she feels very unsteady with walking now and feels like everything spinning around her, generalized weak. She said that her father recently and she has feels very anxious since then, she was taking ativan for anxiety and she took Ativan before boarding to the pass. Denies any headache or blurred vision or any new weakness or numbness or nausea or vomiting. Denies any new complaint of chest pain or shortness of breath or abdominal pain or fever or chills Denies any cough Denies any weakness or numbness. hospital course: Patient came to the hospital because of possible dizziness/vertigo vs possible postconcussion (due to fall): CT head has small subgaleal hematoma unchanged, seen by Neurology-no new recommendations. In addition patient's symptoms seems like more BPPV-seen by PT and symptoms are improved Flakito maneuvers. Patient is to follow-up out patiently, consider outpatient PT evaluation also with PCP if needed for BP Pv. She has mild rash-at the tele area -given benadryl upon discharge. Above management discussed with the patient detail length, assessment and plan coordination time spent 50 minute. Time Spent with Patient Time attestation: Total time managing care of this patient today ____ minutes. Discharge coordination time: Greater than 30 minutes Quality: Safe Use of Opioids Does Pt have an Active Cancer Diagnosis on the Problem List?: No Quality: Stroke Does the patient have a stroke diagnosis?: No Physical Exam Vital Signs: Vital Signs: Last Vital Signs Temp 97.2 F 08/08/22 07:32 Pulse 76 08/08/22 07:32 Resp 16 08/08/22 07:32 BP 140/75 H 08/08/22 07:32 Pulse Ox 97 08/08/22 07:32 O2 Del Method 08/08/22 07:32 BMI result Body Mass Index 34.0 Appearance: Alert.? Oriented X3.? not in distress.? Eyes: Pupils equal, round and reactive to light.? Sclera nonicteric.? ENT: Pharynx normal.? Moist mucous membranes. cvs: rrr, [id number] . res: clear to auscultation ,no rhonchii or wheezing abd: no rebound or guarding ,nt, bs present. ext pulses present , no cyanosis. neuro: axo3 , nonfocal. DS: Data Imaging Chest x-ray: Radiologist's impression: ITS Impressions Chest X-Ray 08/06/22 09:48 IMPRESSION: No acute cardiopulmonary process. Head CT 08/06/22 16:29 IMPRESSION: 1. No acute intracranial pathology. 2. Small subgaleal hematoma without underlying abnormality and no significant change. 3. Mild to moderate inflammatory changes in the ethmoid and right maxillary sinuses. Discharge Plan Discharge Patient Disposition: Home, Self-Care Discharge Diagnosis: BPPV Referrals: Christiane Ogden MD [Primary Care Provider] - 1 Week Discharge Medications: New meclizine 25 mg Tablet 25 mg PO Q6H PRN (Reason: Vertigo) Qty: 4 0RF diphenhydramine HCl 25 mg Capsule 25 mg PO Q6H PRN (Reason: Rash) Qty: 4 0RF Continued levothyroxine 88 mcg tablet 88 mcg PO DAILY 30 Days Qty: 30 0RF escitalopram oxalate 20 mg tablet 20 mg PO DAILY 30 Days Qty: 30 0RF phenytoin sodium extended [Dilantin Extended] 100 mg capsule 300 mg PO DAILY phenytoin sodium extended [Dilantin Extended] 100 mg capsule 200 mg PO BEDTIME quetiapine 50 mg tablet 50 mg PO BEDTIME lorazepam [Ativan] 0.5 mg tablet 1 tab PO TID melatonin 5 mg Tablet 5 mg PO BEDTIME PRN (Reason: Sleep) pantoprazole 20 mg tablet,delayed release (DR/EC) 1 tab PO DAILY quetiapine 25 mg tablet 25 mg PO DAILY Qty: 30 0RF Rx Instructions: take 25mg in morning Discharge Orders: Discharge Order (Routine); Ordered 08/08/22 Ordered By: Faby Orellana Diet: Advance to usual diet Activity on Discharge: As tolerated Stand Alone Forms: Patient Portal Discharge page Care Plan Goals: Patient came to the hospital because of possible dizziness/vertigo: CT head has small subgaleal hematoma unchanged, seen by Neurology-no new recommendations. In addition patient's symptoms seems like more BPPV-seen by PT and symptoms are improved Flakito maneuvers. Patient is to follow-up out patiently, consider outpatient PT evaluation also with PCP if needed for BP Pv. She has mild rash-at the tele area -given benadryl upon discharge. Health Concerns: As above. Plan of Treatment: As above. Assessment: As above. Patient Instructions: Acute Rash (DC), Benign Paroxysmal Positional Vertigo (DC)
== END 2022-08-08 10:52 | disposition home or self-care (01) ==
LOC: HO.ED 17:27 → HO.EDOVER 18:21 → HO.S3 19:30
PROVIDERS: Physician Assistant; Admitting Provider Internal Medicine; Emergency Provider Emergency Medicine; PCP Internal Medicine; Visit Provider Internal Medicine
DX: F07.81 Postconcussional syndrome (principal); H81.13 Benign paroxysmal vertigo, bilateral; R21 Rash and other nonspecific skin eruption; R51.9 Headache, unspecified; M54.2 Cervicalgia; R26.2 Difficulty in walking, not elsewhere classified; R07.89 Other chest pain; Z20.822 Contact with and (suspected) exposure to COVID-19; Z79.899 Other long term (current) drug therapy
CPT/HCPCS: 36415; 70450; 71045; 80048; 80076; 81001; 83735; 84484; 85025; 85610; 87635; 93005; 95992; 96361; 96365; 96366; 96375; 96376; 97116; 97161; 99218; 99285; J1200; J2405

== ENCOUNTER 2022-08-12 10:00 | Outpatient (RCR) | payer OTHER, SELFPAY ==
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
[2022-07-22 14:09] LABS: Amphetamine Screen Urine Not Detected (Not Detect); Barbiturates, Urine Not Detected (Not Detect); Benzodiazepines Screen Urine Not Detected (Not Detect); Cannabinoid Screen Urine Not Detected (Not Detect); Cocaine Screen Urine Not Detected (Not Detect); Fentanyl, urine Not Detected (Not Detect); Opiate Screen Urine Not Detected (Not Detect); Phencyclidine Screen Urine Not Detected (Not Detect)
[2022-07-22 14:27] VITALS: BP 120/64; PULSE 72; RESP 16; TEMP 37.4
[2022-07-22 14:29] VITALS: BMI 34.0
--- NOTE | 2022-07-23 15:17 | PC.ADMIT ---
Admission note: Patient admit to [facility] on Mon., 07/22/2022 with dx of MDD, recurrent, severe without psychotic features and Generalized Anxiety Disorder. Patient reports increased anxiety. Patient was seen for Medication Appointment with [employer] who added a scheduled dose of Seroquel during the day in addition to the PRN Seroquel for sleep. All medications reconciled with patient and pharmacy. Medication teaching with report of good understanding by patient. Patient was alert, appropriate and cooperative during nursing assessment. Patient mood stable with appropriate affect. Patient denies HI and SI with no plan and no intent. Patient reports her PRN Seroquel at bedtime has improved her sleep. Patient reports decreased appetite, weight is stable. Patient is goal oriented with goal of decreased anxiety with medication management and developed healthy coping skills through participation in group sessions. Nursing assessment completed and documented.
--- NOTE | 2022-07-24 15:18 | HO.PHPIOP ---
case opened in treatment team
--- NOTE | 2022-07-26 10:04 | HO.PHPIOP ---
The clients case was opened in treatment team
--- NOTE | 2022-07-29 12:42 | P.PNPSP_ITS ---
Subjective Subjective Date of Service: 07/29/22 Reason For Visit: MDD Interim History: Mood 'slightly improving . Slightly less anxious and depressed. Finding groups helpful. Finds the am quetiapine 25mg helpful. Wants to take daily dilantin dose all in am, currently dose is split. No SI/HI, no safety concerns. Sleep and appetite good. Medication Compliance: Yes Side effects from medications: No Review of Systems Acute medical concerns: No Medical Review of Systems: unchanged Review of Systems Review of Systems Yes all other systems are reviewed and are negative Constitutional: Reports no additional constitutional complaints Mental Status Exam Mental Status Exam Narrative: NAD. Patient Appearance: Appropriate Patient Orientation: Person, Place, Time and Situation Level of Consciousness: Appropriate Patient Behavior: Appropriate, Cooperative and Good Eye Contact Mood Description: Depressed (describes slight improvement) and Anxious (describes slight improvement) Affect Description: Depressed (less) and Anxious (less) Patient Cognition Impaired: No Ability to Follow Directions: Good Speech Pattern: Clear Memory Description: Intact Hallucinations: None Delusions: Not Present Thought Process: Intact Thought Content: positive for Obsessional Thoughts (worries about upcoming holidays, being alone) Depressive Symptoms: Increased Anxiety, Crying Spells, Loss of Int. in Activity, Feelings of Worthlessness, Isolating-Friends/Family, Feelings of Guilt, Unhappiness, Increased Fatigue and Loss of Energy Judgement: Fair Diagnostics Vital Signs (24Hr): BMI result Body Mass Index 34.0 Assessment & Plan Assessment & Plan (1) Major depressive disorder, recurrent severe without psychotic features: Status: Acute Code(s): F33.2 - Major depressive disorder, recurrent severe without psychotic features Assessment and Plan: Mood 'slightly improving . Slightly less anxious and depressed. States she does fairly well while here, but struggles once home. Trying to keep busy at home, puzzles, television. Finding groups helpful. Practicing coping skills learned. Finds the am quetiapine 25mg helpful. Would like to continue this dose at this time. Wants to take daily dilantin dose all in am, currently dose is split. Says used to take dilantin 500mg in am. Now takes 200mg in am, and 300mg at night. Has noticed some mood regulating properties with the dose all at once. As per T/W's suggestion, Patient will call her neurologist to discuss prior to changing schedule. No SI/HI, no safety concerns. Sleep and appetite good, improving. (2) Generalized anxiety disorder: Status: Acute Code(s): F41.1 - Generalized anxiety disorder Plan 1. continue with current [facility] plan of care. 2. Continue with current medication regimen. Refill of quetiapine 25mg daily in am, 30-day supply, sent. (patient has medications delivered, easier if monthly supply). 3. Follow-up as per protocol. Patient educated on: diagnosis, medication risk/benefits and therapeutic strategies Informed Consent: understands Reason for contiued partial hosp. stay Substantial Risk for: harm to self, inability to function, rapid decompensation and med/psych decompensation Certification I certify that partial hospital treatment is medically necessary due to the symptoms and problems resulting from the patient's mental illness and the failure to treat the patient at the partial hospital level of care would likely result in the patient requiring inpatient psychiatric care which could not be prevented at a less intensive level of care. I spent minutes with the patient and/or on the patient floor today, greater than?50% of which was spent counseling/coordinating care. Discharge Plan Discharge Attending provider: Eddie Orozco Medications: New quetiapine 25 mg tablet 25 mg PO DAILY Qty: 30 0RF Rx Instructions: take 25mg in morning No Action levothyroxine 88 mcg tablet 88 mcg PO DAILY 30 Days Qty: 30 0RF escitalopram oxalate 20 mg tablet 20 mg PO DAILY 30 Days Qty: 30 0RF quetiapine 50 mg tablet 50 mg PO BEDTIME PRN (Reason: Anxiety) 30 Days Qty: 30 0RF lorazepam [Ativan] 0.5 mg tablet 1 tab PO TID phenytoin sodium extended 200 mg capsule 200 mg PO 1XD Rx Instructions: 200mg daily in AM 300mg at bedtime phenytoin sodium extended 300 mg Capsule 300 mg PO BEDTIME melatonin 5 mg Tablet 5 mg PO BEDTIME PRN (Reason: Sleep) pantoprazole 20 mg tablet,delayed release (DR/EC) 1 tab PO DAILY
--- NOTE | 2022-08-12 16:38 | HO.PHPIOP ---
I left a message for the clients therapist, Conchita Nobles to inform her of the clients discharge from PHP
== END 2022-08-12 23:59 | disposition home or self-care (01) ==
LOC: HO.PHPA 10:00
PROVIDERS: Visit Provider Psychiatry & Neurology Psychiatry
DX: F33.2 Major depressive disorder, recurrent severe without psychotic features (principal); F41.1 Generalized anxiety disorder; Z79.899 Other long term (current) drug therapy
CPT/HCPCS: 80307; 90853

== ENCOUNTER 2022-09-23 14:22 | Emergency (ER) | payer OTHER, SELFPAY ==
--- NOTE | ~2022-09-23 | CT_ITS ---
EXAMINATION: CT ABDOMEN AND PELVIS WITH CONTRAST CLINICAL INFORMATION: Nausea, abdominal pain COMPARISON: None TECHNIQUE: Multidetector volumetric images were obtained from the superior aspect of the liver through the pubic symphysis following administration 85 mL of Omnipaque 350 intravenous contrast. Sagittal and coronal reformatted images were obtained on the technologist's workstation. Oral contrast: No This CT examination was performed using dose optimization techniques as appropriate, variously including the following: *Automated exposure control *Adjustment of mA and/or kV according to patient size (this includes techniques or standardized protocols for targeted exams where dose is matched to indication/reason for exam; i.e. extremities or head) *Use of iterative reconstruction technique DLP: 736 mGy-cm FINDINGS: LUNG BASES: The visualized lung bases are unremarkable. LIVER, GALLBLADDER, AND BILIARY TREE: The liver is normal in size, shape, and attenuation. No focal hepatic lesion or biliary ductal dilatation is present. Cholelithiasis is noted. No significant gallbladder wall thickening or surrounding inflammation. PANCREAS: Unremarkable. SPLEEN: Unremarkable. ADRENAL GLANDS: Unremarkable. KIDNEYS AND URETERS: Bilateral nephrograms are symmetric. No hydronephrosis or obstructing calculus identified. Tiny hypodensity in the lateral left kidney favors a cyst; no follow-up recommended. BLADDER: Unremarkable. GASTROINTESTINAL TRACT: Small hiatal hernia is noted. There is scattered colonic diverticulosis without diverticulitis. No significant bowel wall thickening is seen, though assessment in some segments of the colon is limited due to luminal collapse. Appendix is nondilated. No free fluid or free air is seen. ABDOMINAL WALL: No significant hernia is appreciated. LYMPH NODES: Normal. VASCULAR: Scattered atherosclerotic plaque and calcifications. PELVIC VISCERA: Simple appearing left adnexal cyst measures up to approximately 6.1 cm. OSSEOUS STRUCTURES: Unremarkable. CT/CT abdomen pelvis w IV con IMPRESSION: 1. Cholelithiasis. If there is clinical concern for cholecystitis, this would be better assessed with ultrasound. 2. Left adnexal cyst measuring up to 6.1 cm. Follow-up pelvic ultrasound in 3-6 months is recommended. 3. Small hiatal hernia.
--- NOTE | ~2022-09-23 | US_ITS ---
EXAMINATION: US ABDOMEN LIMITED CLINICAL INFORMATION: Pain, rule out cholecystitis. COMPARISON: CT from earlier today TECHNIQUE: Real-time imaging of the right upper quadrant abdominal viscera. FINDINGS: Single gallstone measuring 1.6 cm identified near the gallbladder neck. Sludge is noted at the gallbladder fundus. Gallbladder wall thickness is at the upper limits of normal. No free fluid is seen. Right upper quadrant tenderness was reported during the exam. Common bile duct is nondilated, measuring 0.5 cm in diameter. US/US abdomen limited IMPRESSION: Cholelithiasis. No gallbladder wall thickening or pericholecystic fluid, though right upper quadrant tenderness was reported during the exam. If there is clinical suspicion for acute cholecystitis, assessment with nuclear medicine hepatobiliary scan could be performed.
[2022-09-23 14:41] VITALS: BP 168/70; PULSE 73; RESP 18; TEMP 36.9; O2SAT 96; BMI 32.3
--- NOTE | 2022-09-23 14:43 | ED.ABDPAIN ---
HPI - Abdominal Pain General Chief Complaint: Abdominal Pain Stated Complaint: ABD PAIN X'S 5 DAYS PER EMS Time Seen by Provider: 09/23/22 23:16 Related Data Home Medications Medication Instructions Recorded Confirmed lorazepam 0.5 mg tablet (Ativan) 1 tab PO TID 07/22/22 08/06/22 melatonin 5 mg tablet 5 mg PO BEDTIME PRN Sleep 07/22/22 08/06/22 pantoprazole 20 mg tablet,delayed 1 tab PO DAILY 07/22/22 08/06/22 release phenytoin sodium extended 100 mg 200 mg PO BEDTIME 08/06/22 08/06/22 capsule (Dilantin Extended) phenytoin sodium extended 100 mg 300 mg PO DAILY 08/06/22 08/06/22 capsule (Dilantin Extended) quetiapine 50 mg tablet 50 mg PO BEDTIME 08/06/22 08/06/22 Previous Rx's Medication Instructions Recorded escitalopram oxalate 20 mg tablet 20 mg PO DAILY 30 days #30 tabs 05/09/22 levothyroxine 88 mcg tablet 88 mcg PO DAILY 30 days #30 tabs 05/09/22 quetiapine 25 mg tablet 25 mg PO DAILY #30 tabs 07/29/22 diphenhydramine HCl 25 mg capsule 25 mg PO Q6H PRN Rash #4 caps 08/08/22 meclizine 25 mg tablet 25 mg PO Q6H PRN Vertigo #4 tabs 08/08/22 polyethylene glycol 3350 17 17 g PO BID PRN constipation #238 09/24/22 gram/dose oral powder (Miralax) grams Allergies Allergy/AdvReac Type Severity Reaction Status Date / Time lamotrigine [From LAMICTAL] Allergy Mild SHORTNESS Verified 08/06/22 09:16 OF BREATH adhesive Allergy Unknown Unknown Verified 08/06/22 09:16 cat dander [CATS] Allergy Unknown Unknown Verified 08/06/22 09:16 cheese [CHEESE] Allergy Unknown UNKNOWN Verified 08/06/22 09:16 dog dander [DOGS] Allergy Unknown unk Verified 08/06/22 09:16 mold [MOLD] Allergy Unknown UNKNOWN Verified 08/06/22 09:16 pollen extracts [POLLEN] Allergy Unknown UNKNOWN Verified 08/06/22 09:16 ragweed pollen [RAGWEED] Allergy Unknown UNKNOWN Verified 08/06/22 09:16 tomato [TOMATO] Allergy Unknown UNKNOWN Verified 08/06/22 09:16 [facility] Past Medical History Medical History Chronic post-traumatic stress disorder (PTSD) Epilepsy Major depression with psychotic features Social History Social History Household Members: None Housing: Condominium Do you presently have visiting nurse or other home services: No Alcohol intake: never Patient Tobacco Use Status: Former Tobacco user Advance Directives: No Advance Directives Information Provided: No service: No Current occupational status: disabled Sexual orientation: Straight/Heterosexual Physical Exam ED Vital Signs: Vital Signs - 24 hr 09/23/22 14:41 09/24/22 03:46 Temperature 98.4 F 97.4 F Pulse Rate 73 84 Respiratory Rate 18 18 Blood Pressure 168/70 H 136/76 Pulse Oximetry 96 96 Oxygen Delivery Method Room Air Room Air BMI result Body Mass Index 32.3 Course Course Course Narrative: This is a rapid medical exam. Deferred additional HPI, ROS, PE to primary provider. 57 yo female with pmh anxiety, depression, epilepsy who presents with complaints of abdominal pain after eating for the last few months with difficulty breathing from underlying hiatal hernia. Having constipation for last 5 days due to her home medications the patient was able to move her bowels this morning. VSS Will obtain labs, UA Medical Decision Making Lab Data 09/23/22 16:53 09/23/22 19:06 Labs: Lab Results 09/23/22 09/23/22 09/23/22 Range/Units 16:53 16:53 19:06 WBC 8.7 (4.8-10.8) X10*3/uL RBC 4.97 (4.20-5.50) X10*6/uL Hgb 15.3 (12.0-16.0) g/dl Hct 43.4 (37.0-47.0) % MCV 87.3 (80.0-98.0) fL MCH 30.8 (27.0-33.0) pg MCHC 35.3 H (31.0-35.0) g/dl RDW 12.5 (11.0-16.0) % Plt Count 295 (160-400) X10*3/uL MPV 8.7 L (9.4-12.3) fL Immature Gran % (Auto) 0.3 (0.0-0.4) % Neut % (Auto) 75.1 H (45-73) % Lymph % (Auto) 16.5 L (20-40) % [place] % (Auto) 6.8 (2-11) % Eos % (Auto) 0.5 (0-4) % Baso % (Auto) 0.8 (0-2) % Lymph # (Auto) 1.4 (1.2-4.9) X10*3/uL [place] # (Auto) 0.6 (0.1-1.2) X10*3/uL Eos # (Auto) 0.0 (0.0-0.4) X10*3/uL Baso # (Auto) 0.1 (0.0-0.2) X10*3/uL Abs Immat Gran (auto) 0.03 (0.00-0.03) X10*3/uL Absolute Neuts (auto) 6.6 (2.0-8.3) x10*3/uL Absolute Nucleated RBC 0.000 (0.0-0.012) X10*3/uL Nucleated RBC % (auto) 0.0 (0.0-0.2) /100WBC Sodium 135 (135-145) mmol/L Potassium 3.9 (3.3-5.1) mmol/L Chloride 105 (96-108) mmol/L Carbon Dioxide 16 L (22-29) mmol/L Anion Gap 18 (12-20) BUN 6 L (9-16) mg/dL Creatinine 0.84 (0.5-1.4) mg/dL Estim Creat Clear Calc 82.8 Estimated GFR > 60 Random Glucose 120 H (60-115) mg/dL Calcium 9.3 D (8.4-10.2) mg/dL Total Bilirubin 0.6 (0.0-1.0) mg/dL Direct Bilirubin 0.2 (0.0-0.5) mg/dL AST 19 (5-31) U/L ALT 12 (0-31) U/L Alkaline Phosphatase 140 H (39-117) U/L Total Protein 7.8 (6.5-8.0) g/dL Albumin 4.5 (3.5-5.0) g/dL Lipase 10 (8-78) U/L Urine Color Urine Appearance Urine pH (5.0-9.0) Ur Specific [place] (1.005-1.025) Urine Protein (Neg-Trace) mg/dL Urine Glucose (UA) (Negative) mg/dL Urine Ketones (Negative) mg/dL Urine Blood (Negative) Urine Nitrite (Negative) Ur Leukocyte Esterase (Negative) Urine RBC (0-2) /HPF Urine WBC (0-5) /HPF Ur Squamous Epith Cells (0-2) /HPF Urine Bacteria (None Seen) Hyaline Casts (0-2) /LPF COVID-19 (MEET) Negative (Negative) COVID-19 Clin Com See Note 09/24/22 Range/Units 01:35 WBC (4.8-10.8) X10*3/uL RBC (4.20-5.50) X10*6/uL Hgb (12.0-16.0) g/dl Hct (37.0-47.0) % MCV (80.0-98.0) fL MCH (27.0-33.0) pg MCHC (31.0-35.0) g/dl RDW (11.0-16.0) % Plt Count (160-400) X10*3/uL MPV (9.4-12.3) fL Immature Gran % (Auto) (0.0-0.4) % Neut % (Auto) (45-73) % Lymph % (Auto) (20-40) % [place] % (Auto) (2-11) % Eos % (Auto) (0-4) % Baso % (Auto) (0-2) % Lymph # (Auto) (1.2-4.9) X10*3/uL [place] # (Auto) (0.1-1.2) X10*3/uL Eos # (Auto) (0.0-0.4) X10*3/uL Baso # (Auto) (0.0-0.2) X10*3/uL Abs Immat Gran (auto) (0.00-0.03) X10*3/uL Absolute Neuts (auto) (2.0-8.3) x10*3/uL Absolute Nucleated RBC (0.0-0.012) X10*3/uL Nucleated RBC % (auto) (0.0-0.2) /100WBC Sodium (135-145) mmol/L Potassium (3.3-5.1) mmol/L Chloride (96-108) mmol/L Carbon Dioxide (22-29) mmol/L Anion Gap (12-20) BUN (9-16) mg/dL Creatinine (0.5-1.4) mg/dL Estim Creat Clear Calc Estimated GFR Random Glucose (60-115) mg/dL Calcium (8.4-10.2) mg/dL Total Bilirubin (0.0-1.0) mg/dL Direct Bilirubin (0.0-0.5) mg/dL AST (5-31) U/L ALT (0-31) U/L Alkaline Phosphatase (39-117) U/L Total Protein (6.5-8.0) g/dL Albumin (3.5-5.0) g/dL Lipase (8-78) U/L Urine Color Yellow Urine Appearance Turbid Urine pH 6.0 (5.0-9.0) Ur Specific [place] 1.010 (1.005-1.025) Urine Protein Trace (Neg-Trace) mg/dL Urine Glucose (UA) Negative (Negative) mg/dL Urine Ketones 15 (Negative) mg/dL Urine Blood Trace H (Negative) Urine Nitrite Negative (Negative) Ur Leukocyte Esterase Large (3+) H (Negative) Urine RBC 3-5 H (0-2) /HPF Urine WBC >50 H (0-5) /HPF Ur Squamous Epith Cells >20 (0-2) /HPF Urine Bacteria 3+ (None Seen) Hyaline Casts 0-2 (0-2) /LPF COVID-19 (MEET) (Negative) COVID-19 Clin Com Medications Administered Discontinued Medications Generic Name Dose Route Start Last Admin Trade Name Freq PRN Reason Stop Dose Admin Sodium Chloride 1,000 mls @ 999 mls/hr 09/23/22 23:45 09/24/22 03:55 Ns IV 09/24/22 00:45 Infused .Q1H1M LIZZIE Infusion Ceftriaxone Sodium 1 gm/ 50 mls @ 100 mls/hr 09/24/22 02:29 09/24/22 06:34 Sodium Chloride IV 01/31/23 02:58 Infused ONCE ONE Infusion Iohexol 85 ml 09/24/22 02:25 09/24/22 02:25 Iohexol 350 Mg/Ml 100 Ml Infus..Btl IV 09/24/22 02:26 85 ml ONCE ONE Administration Ondansetron HCl 4 mg 09/23/22 23:49 09/24/22 02:05 Ondansetron Hcl 4 Mg/2 Ml Vial IVPUSH 09/23/22 23:50 4 mg ONCE ONE Administration Sodium Biphosphate/Sodium Phosphate 133 ml 09/23/22 23:49 09/24/22 03:55 Sodium Phosphate,[place]-Dibasic 133 Ml Enema IA 09/23/22 23:50 Not Given ONCE ONE Discharge Plan Discharge Clinical Impression: Constipation, Abdominal pain Patient Disposition: Home, Self-Care Instructions: Constipation (ED), Abdominal Pain (ED) Additional Instructions: Please follow-up with your primary care physician tomorrow. If you have any worsening or new symptoms, please return to the emergency room or call 911 Prescriptions: New polyethylene glycol 3350 [Miralax] 17 gram/dose powder 17 g PO BID PRN (Reason: constipation) Qty: 238 0RF No Action levothyroxine 88 mcg tablet 88 mcg PO DAILY 30 Days Qty: 30 0RF escitalopram oxalate 20 mg tablet 20 mg PO DAILY 30 Days Qty: 30 0RF phenytoin sodium extended [Dilantin Extended] 100 mg capsule 300 mg PO DAILY phenytoin sodium extended [Dilantin Extended] 100 mg capsule 200 mg PO BEDTIME quetiapine 50 mg tablet 50 mg PO BEDTIME meclizine 25 mg Tablet 25 mg PO Q6H PRN (Reason: Vertigo) Qty: 4 0RF diphenhydramine HCl 25 mg Capsule 25 mg PO Q6H PRN (Reason: Rash) Qty: 4 0RF lorazepam [Ativan] 0.5 mg tablet 1 tab PO TID melatonin 5 mg Tablet 5 mg PO BEDTIME PRN (Reason: Sleep) pantoprazole 20 mg tablet,delayed release (DR/EC) 1 tab PO DAILY quetiapine 25 mg tablet 25 mg PO DAILY Qty: 30 0RF Rx Instructions: take 25mg in morning Interventions: ED Discharge Assessment Last Done: 09/24/22 07:26 Discharge Date/Time: 09/24/22 07:28
[2022-09-23 17:02] LABS: Basophils Absolute Auto 0.1 X10*3/uL (0.0-0.2); Basophils Percent Auto 0.8 % (0-2); Eosinophils Percent Auto 0.5 % (0-4); Hematocrit 43.4 % (37.0-47.0); Hemoglobin 15.3 g/dl (12.0-16.0); Imm Gran Abs Auto 0.03 X10*3/uL (0.00-0.03); Imm Gran Pct Auto 0.3 % (0.0-0.4); Lymphocytes Absolute Auto 1.4 X10*3/uL (1.2-4.9); Lymphocytes Percent Auto 16.5 % (20-40); MANUAL DIFF FLAG NO; Mean Corpuscular HGB Conc 35.3 g/dl (31.0-35.0); Mean Corpuscular Hemoglobin 30.8 pg (27.0-33.0); Mean Corpuscular Volume 87.3 fL (80.0-98.0); Mean Platelet Volume 8.7 fL (9.4-12.3); Monocytes Absolute Auto 0.6 X10*3/uL (0.1-1.2); Monocytes Percent Auto 6.8 % (2-11); Neutrophils Absolute Auto 6.6 x10*3/uL (2.0-8.3); Neutrophils Percent Auto 75.1 % (45-73); Platelet Count 295 X10*3/uL (160-400); Red Blood Count 4.97 X10*6/uL (4.20-5.50); Red Cell Distribution Width 12.5 % (11.0-16.0); White Blood Count 8.7 X10*3/uL (4.8-10.8)
[2022-09-23 17:20] LABS: COVID-19 Test Negative (Negative); IDNOW Serial# 9DB6401D
[2022-09-23 19:32] LABS: Alanine Aminotransferase 12 U/L (0-31); Albumin Level 4.5 g/dL (3.5-5.0); Alkaline Phosphatase 140 U/L (39-117); Anion Gap 18 (12-20); Aspartate Amino Transferase 19 U/L (5-31); Bilirubin Direct 0.2 mg/dL (0.0-0.5); Bilirubin Total 0.6 mg/dL (0.0-1.0); Blood Urea Nitrogen 6 mg/dL (9-16); Calcium 9.3 mg/dL (8.4-10.2); Carbon Dioxide 16 mmol/L (22-29); Chloride 105 mmol/L (96-108); Creatinine Clr Calc Pharmacy 82.8; Estimated Glomerular Filt Rate > 60; Glucose Random 120 mg/dL (60-115); Lipase 10 U/L (8-78); Potassium 3.9 mmol/L (3.3-5.1); Sodium 135 mmol/L (135-145); Total Protein 7.8 g/dL (6.5-8.0)
--- NOTE | 2022-09-23 23:50 | ED.ABDPAIN ---
HPI - Abdominal Pain General Chief Complaint: Abdominal Pain <Sofi Byrd MD - Last Filed: 09/24/22 00:00> Stated Complaint: ABD PAIN X'S 5 DAYS PER EMS <Sofi Byrd MD - Last Filed: 09/24/22 00:00> Time Seen by Provider: 09/23/22 23:16 <Sofi Byrd MD - Last Filed: 09/24/22 00:00> History of Present Illness HPI narrative: Patient is a 57-year-old female presents today with having abdominal pain. Patient claims that she had a previous in the past. Also had a history of endometriosis. Presented today with having no bowel movement for about a week. 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 Patient's had a large bowel movement today. Still feels nauseous. Still feels abdominal cramping. The cramping is all throughout. There is no pain on urination. There is no coughing or congestion or upper respiratory symptoms. There is no chest pain. There is no shortness of breath. Patient is from home. <Sofi Byrd MD - Last Filed: 09/24/22 00:00> Related Data Home Medications: Home Medications Medication Instructions Recorded Confirmed lorazepam 0.5 mg tablet (Ativan) 1 tab PO TID 07/22/22 08/06/22 melatonin 5 mg tablet 5 mg PO BEDTIME PRN Sleep 07/22/22 08/06/22 pantoprazole 20 mg tablet,delayed 1 tab PO DAILY 07/22/22 08/06/22 release phenytoin sodium extended 100 mg 200 mg PO BEDTIME 08/06/22 08/06/22 capsule (Dilantin Extended) phenytoin sodium extended 100 mg 300 mg PO DAILY 08/06/22 08/06/22 capsule (Dilantin Extended) quetiapine 50 mg tablet 50 mg PO BEDTIME 08/06/22 08/06/22 Previous Rx's Medication Instructions Recorded escitalopram oxalate 20 mg tablet 20 mg PO DAILY 30 days #30 tabs 05/09/22 levothyroxine 88 mcg tablet 88 mcg PO DAILY 30 days #30 tabs 05/09/22 quetiapine 25 mg tablet 25 mg PO DAILY #30 tabs 07/29/22 diphenhydramine HCl 25 mg capsule 25 mg PO Q6H PRN Rash #4 caps 08/08/22 meclizine 25 mg tablet 25 mg PO Q6H PRN Vertigo #4 tabs 08/08/22 polyethylene glycol 3350 17 17 g PO BID PRN constipation #238 09/24/22 gram/dose oral powder (Miralax) grams <Sofi Byrd MD - Last Filed: 09/24/22 00:00> Allergies/Adverse Reactions: Allergies Allergy/AdvReac Type Severity Reaction Status Date / Time lamotrigine [From LAMICTAL] Allergy Mild SHORTNESS Verified 08/06/22 09:16 OF BREATH adhesive Allergy Unknown Unknown Verified 08/06/22 09:16 cat dander [CATS] Allergy Unknown Unknown Verified 08/06/22 09:16 cheese [CHEESE] Allergy Unknown UNKNOWN Verified 08/06/22 09:16 dog dander [DOGS] Allergy Unknown unk Verified 08/06/22 09:16 mold [MOLD] Allergy Unknown UNKNOWN Verified 08/06/22 09:16 pollen extracts [POLLEN] Allergy Unknown UNKNOWN Verified 08/06/22 09:16 ragweed pollen [RAGWEED] Allergy Unknown UNKNOWN Verified 08/06/22 09:16 tomato [TOMATO] Allergy Unknown UNKNOWN Verified 08/06/22 09:16 <Sofi Byrd MD - Last Filed: 09/24/22 00:00> Review of Systems Review of Systems Positive nausea positive abdominal pain <Sofi Byrd MD - Last Filed: 09/24/22 00:00> Yes all other systems are reviewed and are negative <Sofi Byrd MD - Last Filed: 09/24/22 00:00> PMFSH Past Medical History Attestation statement: The following information was validated with the patient. <Sofi Byrd MD - Last Filed: 09/24/22 00:00> Medical History: Medical History Chronic post-traumatic stress disorder (PTSD) Epilepsy Major depression with psychotic features <Sofi Byrd MD - Last Filed: 09/24/22 00:00> Social History Social History: Social History Household Members: None Housing: Condominium Do you presently have visiting nurse or other home services: No Alcohol intake: never Patient Tobacco Use Status: Former Tobacco user Advance Directives: No Advance Directives Information Provided: No service: No Current occupational status: disabled Sexual orientation: Straight/Heterosexual <Sofi Byrd MD - Last Filed: 09/24/22 00:00> Physical Exam ED Vital Signs: Vital Signs - 24 hr 09/23/22 14:41 09/24/22 03:46 Temperature 98.4 F 97.4 F Pulse Rate 73 84 Respiratory Rate 18 18 Blood Pressure 168/70 H 136/76 Pulse Oximetry 96 96 Oxygen Delivery Method Room Air Room Air BMI result Body Mass Index 32.3 Appearance: Alert. Oriented X3. No acute distress. Eyes: Pupils equal, round and reactive to light. ENT: Pharynx normal. Neck: Normal inspection. Neck supple. No lymph nodes noted. No crepitus CVS: Normal heart rate and rhythm. Pulses normal. Normal S1 and S2 Respiratory: No respiratory distress. Breath sounds normal. No Wheezing. No rales Abdomen: Soft and nontender. No rigidity. No distention. good BS x4 rectal exam done with tech present. There is no stool in the vault. Good rectal tone Skin: Skin warm and dry. Normal skin color. Normal skin turgor. Extremities: No lower extremity edema. Neurovascular intact to all extremities. No Lacerations. No Rash Neuro: Oriented X 3. No motor deficit. No sensory deficit. Moving all extermities. No slurred speech <Sofi Byrd MD - Last Filed: 09/24/22 00:00> Vital Signs - 24 hr 09/23/22 14:41 09/24/22 03:46 Temperature 98.4 F 97.4 F Pulse Rate 73 84 Respiratory Rate 18 18 Blood Pressure 168/70 H 136/76 Pulse Oximetry 96 96 Oxygen Delivery Method Room Air Room Air BMI result Body Mass Index 32.3 <Sidra Perez MD - Last Filed: 09/24/22 05:39> Medical Decision Making Medical Decision Making MDM Narrative: -I received sign-out from my colleague Dr. Byrd -white blood cell count, T bili, direct bilirubin, AST and ALT within normal limits, alk-phos is very slightly elevated -patient does not seem to have right upper quadrant pain, for Carnes sign -CT scan showed incidental cholelithiasis, an ultrasound was ordered: No gallbladder thickening or pericholecystic fluid. Cholecystitis is not suspected - <Sidra Perez MD - Last Filed: 09/24/22 05:39> Lab Data MDM Lab Attestation statement: I reviewed the patient's lab results. <Sidra Perez MD - Last Filed: 09/24/22 05:39> Result Diagrams: 09/23/22 16:53 09/23/22 19:06 <Sofi Byrd MD - Last Filed: 09/24/22 00:00> Labs: Lab Results 09/23/22 09/23/22 09/23/22 Range/Units 16:53 16:53 19:06 WBC 8.7 (4.8-10.8) X10*3/uL RBC 4.97 (4.20-5.50) X10*6/uL Hgb 15.3 (12.0-16.0) g/dl Hct 43.4 (37.0-47.0) % MCV 87.3 (80.0-98.0) fL MCH 30.8 (27.0-33.0) pg MCHC 35.3 H (31.0-35.0) g/dl RDW 12.5 (11.0-16.0) % Plt Count 295 (160-400) X10*3/uL MPV 8.7 L (9.4-12.3) fL Immature Gran % (Auto) 0.3 (0.0-0.4) % Neut % (Auto) 75.1 H (45-73) % Lymph % (Auto) 16.5 L (20-40) % [place] % (Auto) 6.8 (2-11) % Eos % (Auto) 0.5 (0-4) % Baso % (Auto) 0.8 (0-2) % Lymph # (Auto) 1.4 (1.2-4.9) X10*3/uL [place] # (Auto) 0.6 (0.1-1.2) X10*3/uL Eos # (Auto) 0.0 (0.0-0.4) X10*3/uL Baso # (Auto) 0.1 (0.0-0.2) X10*3/uL Abs Immat Gran (auto) 0.03 (0.00-0.03) X10*3/uL Absolute Neuts (auto) 6.6 (2.0-8.3) x10*3/uL Absolute Nucleated RBC 0.000 (0.0-0.012) X10*3/uL Nucleated RBC % (auto) 0.0 (0.0-0.2) /100WBC Sodium 135 (135-145) mmol/L Potassium 3.9 (3.3-5.1) mmol/L Chloride 105 (96-108) mmol/L Carbon Dioxide 16 L (22-29) mmol/L Anion Gap 18 (12-20) BUN 6 L (9-16) mg/dL Creatinine 0.84 (0.5-1.4) mg/dL Estim Creat Clear Calc 82.8 Estimated GFR > 60 Random Glucose 120 H (60-115) mg/dL Calcium 9.3 D (8.4-10.2) mg/dL Total Bilirubin 0.6 (0.0-1.0) mg/dL Direct Bilirubin 0.2 (0.0-0.5) mg/dL AST 19 (5-31) U/L ALT 12 (0-31) U/L Alkaline Phosphatase 140 H (39-117) U/L Total Protein 7.8 (6.5-8.0) g/dL Albumin 4.5 (3.5-5.0) g/dL Lipase 10 (8-78) U/L Urine Color Urine Appearance Urine pH (5.0-9.0) Ur Specific [place] (1.005-1.025) Urine Protein (Neg-Trace) mg/dL Urine Glucose (UA) (Negative) mg/dL Urine Ketones (Negative) mg/dL Urine Blood (Negative) Urine Nitrite (Negative) Ur Leukocyte Esterase (Negative) Urine RBC (0-2) /HPF Urine WBC (0-5) /HPF Ur Squamous Epith Cells (0-2) /HPF Urine Bacteria (None Seen) Hyaline Casts (0-2) /LPF COVID-19 (MEET) Negative (Negative) COVID-19 Clin Com See Note 09/24/22 Range/Units 01:35 WBC (4.8-10.8) X10*3/uL RBC (4.20-5.50) X10*6/uL Hgb (12.0-16.0) g/dl Hct (37.0-47.0) % MCV (80.0-98.0) fL MCH (27.0-33.0) pg MCHC (31.0-35.0) g/dl RDW (11.0-16.0) % Plt Count (160-400) X10*3/uL MPV (9.4-12.3) fL Immature Gran % (Auto) (0.0-0.4) % Neut % (Auto) (45-73) % Lymph % (Auto) (20-40) % [place] % (Auto) (2-11) % Eos % (Auto) (0-4) % Baso % (Auto) (0-2) % Lymph # (Auto) (1.2-4.9) X10*3/uL [place] # (Auto) (0.1-1.2) X10*3/uL Eos # (Auto) (0.0-0.4) X10*3/uL Baso # (Auto) (0.0-0.2) X10*3/uL Abs Immat Gran (auto) (0.00-0.03) X10*3/uL Absolute Neuts (auto) (2.0-8.3) x10*3/uL Absolute Nucleated RBC (0.0-0.012) X10*3/uL Nucleated RBC % (auto) (0.0-0.2) /100WBC Sodium (135-145) mmol/L Potassium (3.3-5.1) mmol/L Chloride (96-108) mmol/L Carbon Dioxide (22-29) mmol/L Anion Gap (12-20) BUN (9-16) mg/dL Creatinine (0.5-1.4) mg/dL Estim Creat Clear Calc Estimated GFR Random Glucose (60-115) mg/dL Calcium (8.4-10.2) mg/dL Total Bilirubin (0.0-1.0) mg/dL Direct Bilirubin (0.0-0.5) mg/dL AST (5-31) U/L ALT (0-31) U/L Alkaline Phosphatase (39-117) U/L Total Protein (6.5-8.0) g/dL Albumin (3.5-5.0) g/dL Lipase (8-78) U/L Urine Color Yellow Urine Appearance Turbid Urine pH 6.0 (5.0-9.0) Ur Specific [place] 1.010 (1.005-1.025) Urine Protein Trace (Neg-Trace) mg/dL Urine Glucose (UA) Negative (Negative) mg/dL Urine Ketones 15 (Negative) mg/dL Urine Blood Trace H (Negative) Urine Nitrite Negative (Negative) Ur Leukocyte Esterase Large (3+) H (Negative) Urine RBC 3-5 H (0-2) /HPF Urine WBC >50 H (0-5) /HPF Ur Squamous Epith Cells >20 (0-2) /HPF Urine Bacteria 3+ (None Seen) Hyaline Casts 0-2 (0-2) /LPF COVID-19 (MEET) (Negative) COVID-19 Clin Com <Sofi Byrd MD - Last Filed: 09/24/22 00:00> Lab Results 09/23/22 09/23/22 09/23/22 Range/Units 16:53 16:53 19:06 WBC 8.7 (4.8-10.8) X10*3/uL RBC 4.97 (4.20-5.50) X10*6/uL Hgb 15.3 (12.0-16.0) g/dl Hct 43.4 (37.0-47.0) % MCV 87.3 (80.0-98.0) fL MCH 30.8 (27.0-33.0) pg MCHC 35.3 H (31.0-35.0) g/dl RDW 12.5 (11.0-16.0) % Plt Count 295 (160-400) X10*3/uL MPV 8.7 L (9.4-12.3) fL Immature Gran % (Auto) 0.3 (0.0-0.4) % Neut % (Auto) 75.1 H (45-73) % Lymph % (Auto) 16.5 L (20-40) % [place] % (Auto) 6.8 (2-11) % Eos % (Auto) 0.5 (0-4) % Baso % (Auto) 0.8 (0-2) % Lymph # (Auto) 1.4 (1.2-4.9) X10*3/uL [place] # (Auto) 0.6 (0.1-1.2) X10*3/uL Eos # (Auto) 0.0 (0.0-0.4) X10*3/uL Baso # (Auto) 0.1 (0.0-0.2) X10*3/uL Abs Immat Gran (auto) 0.03 (0.00-0.03) X10*3/uL Absolute Neuts (auto) 6.6 (2.0-8.3) x10*3/uL Absolute Nucleated RBC 0.000 (0.0-0.012) X10*3/uL Nucleated RBC % (auto) 0.0 (0.0-0.2) /100WBC Sodium 135 (135-145) mmol/L Potassium 3.9 (3.3-5.1) mmol/L Chloride 105 (96-108) mmol/L Carbon Dioxide 16 L (22-29) mmol/L Anion Gap 18 (12-20) BUN 6 L (9-16) mg/dL Creatinine 0.84 (0.5-1.4) mg/dL Estim Creat Clear Calc 82.8 Estimated GFR > 60 Random Glucose 120 H (60-115) mg/dL Calcium 9.3 D (8.4-10.2) mg/dL Total Bilirubin 0.6 (0.0-1.0) mg/dL Direct Bilirubin 0.2 (0.0-0.5) mg/dL AST 19 (5-31) U/L ALT 12 (0-31) U/L Alkaline Phosphatase 140 H (39-117) U/L Total Protein 7.8 (6.5-8.0) g/dL Albumin 4.5 (3.5-5.0) g/dL Lipase 10 (8-78) U/L Urine Color Urine Appearance Urine pH (5.0-9.0) Ur Specific [place] (1.005-1.025) Urine Protein (Neg-Trace) mg/dL Urine Glucose (UA) (Negative) mg/dL Urine Ketones (Negative) mg/dL Urine Blood (Negative) Urine Nitrite (Negative) Ur Leukocyte Esterase (Negative) Urine RBC (0-2) /HPF Urine WBC (0-5) /HPF Ur Squamous Epith Cells (0-2) /HPF Urine Bacteria (None Seen) Hyaline Casts (0-2) /LPF COVID-19 (MEET) Negative (Negative) COVID-19 Clin Com See Note 09/24/22 Range/Units 01:35 WBC (4.8-10.8) X10*3/uL RBC (4.20-5.50) X10*6/uL Hgb (12.0-16.0) g/dl Hct (37.0-47.0) % MCV (80.0-98.0) fL MCH (27.0-33.0) pg MCHC (31.0-35.0) g/dl RDW (11.0-16.0) % Plt Count (160-400) X10*3/uL MPV (9.4-12.3) fL Immature Gran % (Auto) (0.0-0.4) % Neut % (Auto) (45-73) % Lymph % (Auto) (20-40) % [place] % (Auto) (2-11) % Eos % (Auto) (0-4) % Baso % (Auto) (0-2) % Lymph # (Auto) (1.2-4.9) X10*3/uL [place] # (Auto) (0.1-1.2) X10*3/uL Eos # (Auto) (0.0-0.4) X10*3/uL Baso # (Auto) (0.0-0.2) X10*3/uL Abs Immat Gran (auto) (0.00-0.03) X10*3/uL Absolute Neuts (auto) (2.0-8.3) x10*3/uL Absolute Nucleated RBC (0.0-0.012) X10*3/uL Nucleated RBC % (auto) (0.0-0.2) /100WBC Sodium (135-145) mmol/L Potassium (3.3-5.1) mmol/L Chloride (96-108) mmol/L Carbon Dioxide (22-29) mmol/L Anion Gap (12-20) BUN (9-16) mg/dL Creatinine (0.5-1.4) mg/dL Estim Creat Clear Calc Estimated GFR Random Glucose (60-115) mg/dL Calcium (8.4-10.2) mg/dL Total Bilirubin (0.0-1.0) mg/dL Direct Bilirubin (0.0-0.5) mg/dL AST (5-31) U/L ALT (0-31) U/L Alkaline Phosphatase (39-117) U/L Total Protein (6.5-8.0) g/dL Albumin (3.5-5.0) g/dL Lipase (8-78) U/L Urine Color Yellow Urine Appearance Turbid Urine pH 6.0 (5.0-9.0) Ur Specific [place] 1.010 (1.005-1.025) Urine Protein Trace (Neg-Trace) mg/dL Urine Glucose (UA) Negative (Negative) mg/dL Urine Ketones 15 (Negative) mg/dL Urine Blood Trace H (Negative) Urine Nitrite Negative (Negative) Ur Leukocyte Esterase Large (3+) H (Negative) Urine RBC 3-5 H (0-2) /HPF Urine WBC >50 H (0-5) /HPF Ur Squamous Epith Cells >20 (0-2) /HPF Urine Bacteria 3+ (None Seen) Hyaline Casts 0-2 (0-2) /LPF COVID-19 (MEET) (Negative) COVID-19 Clin Com <Sirda Perez MD - Last Filed: 09/24/22 05:39> Radiology Impression Discussion of test interpretation with radiology: I have reviewed the radiologist's reading. <Sidra Perez MD - Last Filed: 09/24/22 05:39> Radiologist Impression: Abdominal ultrasound: FINDINGS: Single gallstone measuring 1.6 cm identified near the gallbladder neck. Sludge is noted at the gallbladder fundus. Gallbladder wall thickness is at the upper limits of normal. No free fluid is seen. Right upper quadrant tenderness was reported during the exam. Common bile duct is nondilated, measuring 0.5 cm in diameter. US/US abdomen limited IMPRESSION: Cholelithiasis. No gallbladder wall thickening or pericholecystic fluid, though right upper quadrant tenderness was reported during the exam. If there is clinical suspicion for acute cholecystitis, assessment with nuclear medicine hepatobiliary scan could be performed. CT scan of the abdomen: FINDINGS: LUNG BASES: The visualized lung bases are unremarkable.? LIVER, GALLBLADDER, AND BILIARY TREE: The liver is normal in size, shape, and attenuation. No focal hepatic lesion or biliary ductal dilatation is present. Cholelithiasis is noted. No significant gallbladder wall thickening or surrounding inflammation. PANCREAS: Unremarkable.? SPLEEN: Unremarkable.? ADRENAL GLANDS: Unremarkable.? KIDNEYS AND URETERS: Bilateral nephrograms are symmetric. No hydronephrosis or obstructing calculus identified. Tiny hypodensity in the lateral left kidney favors a cyst; no follow-up recommended. BLADDER: Unremarkable.? GASTROINTESTINAL TRACT: Small hiatal hernia is noted. There is scattered colonic diverticulosis without diverticulitis. No significant bowel wall thickening is seen, though assessment in some segments of the colon is limited due to luminal collapse. Appendix is nondilated. No free fluid or free air is seen. ABDOMINAL WALL: No significant hernia is appreciated.? LYMPH NODES: Normal. VASCULAR: Scattered atherosclerotic plaque and calcifications. PELVIC VISCERA: Simple appearing left adnexal cyst measures up to approximately 6.1 cm.? OSSEOUS STRUCTURES: Unremarkable.? CT/CT abdomen pelvis w IV con IMPRESSION: 1.? Cholelithiasis. If there is clinical concern for cholecystitis, this would be better assessed with ultrasound. 2.? Left adnexal cyst measuring up to 6.1 cm. Follow-up pelvic ultrasound in 3-6 months is recommended. 3.? Small hiatal hernia. ? <Sidra Perez MD - Last Filed: 09/24/22 05:39> Medications Administered Discontinued Medications Generic Name Dose Route Start Last Admin Trade Name Freq PRN Reason Stop Dose Admin Sodium Chloride 1,000 mls @ 999 mls/hr 09/23/22 23:45 09/24/22 03:55 Ns IV 09/24/22 00:45 Infused .Q1H1M LIZZIE Infusion Ceftriaxone Sodium 1 gm/ 50 mls @ 100 mls/hr 09/24/22 02:29 09/24/22 03:54 Sodium Chloride IV 09/24/22 02:58 100 mls/hr ONCE ONE Administration Iohexol 85 ml 09/24/22 02:25 09/24/22 02:25 Iohexol 350 Mg/Ml 100 Ml Infus..Btl IV 09/24/22 02:26 85 ml ONCE ONE Administration Ondansetron HCl 4 mg 09/23/22 23:49 09/24/22 02:05 Ondansetron Hcl 4 Mg/2 Ml Vial IVPUSH 09/23/22 23:50 4 mg ONCE ONE Administration Sodium Biphosphate/Sodium Phosphate 133 ml 09/23/22 23:49 09/24/22 03:55 Sodium Phosphate,[place]-Dibasic 133 Ml Enema NM 09/23/22 23:50 Not Given ONCE ONE <Sofi Byrd MD - Last Filed: 09/24/22 00:00> Medications Administered Discontinued Medications Generic Name Dose Route Start Last Admin Trade Name Kavitha PRN Reason Stop Dose Admin Sodium Chloride 1,000 mls @ 999 mls/hr 09/23/22 23:45 09/24/22 03:55 Ns IV 09/24/22 00:45 Infused .Q1H1M LIZZIE Infusion Ceftriaxone Sodium 1 gm/ 50 mls @ 100 mls/hr 09/24/22 02:29 09/24/22 03:54 Sodium Chloride IV 09/24/22 02:58 100 mls/hr ONCE ONE Administration Iohexol 85 ml 09/24/22 02:25 09/24/22 02:25 Iohexol 350 Mg/Ml 100 Ml Infus..Btl IV 09/24/22 02:26 85 ml ONCE ONE Administration Ondansetron HCl 4 mg 09/23/22 23:49 09/24/22 02:05 Ondansetron Hcl 4 Mg/2 Ml Vial IVPUSH 09/23/22 23:50 4 mg ONCE ONE Administration Sodium Biphosphate/Sodium Phosphate 133 ml 09/23/22 23:49 09/24/22 03:55 Sodium Phosphate,[place]-Dibasic 133 Ml Enema NM 09/23/22 23:50 Not Given ONCE ONE <Sidra Perez MD - Last Filed: 09/24/22 05:39> Discharge Plan Discharge Clinical Impression: Constipation, Abdominal pain <Sofi Byrd MD - Last Filed: 09/24/22 00:00> Patient Disposition: Home, Self-Care <Sofi Byrd MD - Last Filed: 09/24/22 00:00> Instructions: Constipation (ED), Abdominal Pain (ED) <Sofi Byrd MD - Last Filed: 09/24/22 00:00> Additional Instructions: Please follow-up with your primary care physician tomorrow. If you have any worsening or new symptoms, please return to the emergency room or call 911 <Sofi Byrd MD - Last Filed: 09/24/22 00:00> Prescriptions: New polyethylene glycol 3350 [Miralax] 17 gram/dose powder 17 g PO BID PRN (Reason: constipation) Qty: 238 0RF No Action levothyroxine 88 mcg tablet 88 mcg PO DAILY 30 Days Qty: 30 0RF escitalopram oxalate 20 mg tablet 20 mg PO DAILY 30 Days Qty: 30 0RF phenytoin sodium extended [Dilantin Extended] 100 mg capsule 300 mg PO DAILY phenytoin sodium extended [Dilantin Extended] 100 mg capsule 200 mg PO BEDTIME quetiapine 50 mg tablet 50 mg PO BEDTIME meclizine 25 mg Tablet 25 mg PO Q6H PRN (Reason: Vertigo) Qty: 4 0RF diphenhydramine HCl 25 mg Capsule 25 mg PO Q6H PRN (Reason: Rash) Qty: 4 0RF lorazepam [Ativan] 0.5 mg tablet 1 tab PO TID melatonin 5 mg Tablet 5 mg PO BEDTIME PRN (Reason: Sleep) pantoprazole 20 mg tablet,delayed release (DR/EC) 1 tab PO DAILY quetiapine 25 mg tablet 25 mg PO DAILY Qty: 30 0RF Rx Instructions: take 25mg in morning <Sofi Byrd MD - Last Filed: 09/24/22 00:00>
[2022-09-24 01:42] LABS: Appearance Urine Turbid; Color Urine Yellow; Glucose Urine UA Negative (Negative); Leukocyte Esterase Urine Large (3+) (Negative); Nitrite Urine Negative (Negative); UMIC TRIGGER UACC YES; Urine Blood Trace (Negative); Urine Ketones 15 mg/dL (Negative); Urine Protein Trace mg/dL (Neg-Trace)
[2022-09-24] MEDS: ondansetron HCL 4 MG/2 ML VIAL IVPUSH (02:05)
[2022-09-24] MEDS: 0.9 % Sodium Chloride 1,000 ML 999 ML IV (02:05)
--- NOTE | 2022-09-24 02:14 | PC.NURSE ---
Pt. lying in bed. Attempted to place IV for CT scan. After 2 unsuccessful attempts, contacted charge nurse and she was able to place an IV in the right AC. Pt. currently at CT scan.
[2022-09-24] MEDS: iohexoL 350 MG/ML 100 ML INFUS..BTL 85 ML IV (02:25)
[2022-09-24 02:28] LABS: Bacteria Urine 3+ (None Seen); Hyaline Casts Urine 0-2 /LPF (0-2); Squamous Epithelial Cell Urine >20 /HPF (0-2); UACC Culture Trigger YES; WBC Urine >50 /HPF (0-5)
[2022-09-24 03:46] VITALS: BP 136/76; PULSE 84; RESP 18; TEMP 36.3; O2SAT 96
[2022-09-24] MEDS: cefTRIAXone sodium 1 GM in 0.9 % Sodium Chloride 50 ML IV (03:54)
[2022-09-24 06:56] VITALS: BP 140/80; PULSE 79; RESP 16; TEMP 36.7; O2SAT 97
== END 2022-09-24 07:28 | disposition home or self-care (01) ==
PROVIDERS: Nurse Practitioner Family; Emergency Provider Emergency Medicine Emergency Medical Services; PCP Internal Medicine
DX: K59.00 Constipation, unspecified (principal); R10.9 Unspecified abdominal pain; R11.2 Nausea with vomiting, unspecified; Z20.822 Contact with and (suspected) exposure to COVID-19; Z20.828 Contact with and (suspected) exposure to other viral communicable diseases; Z79.899 Other long term (current) drug therapy
CPT/HCPCS: 74177; 76705; 80048; 80076; 81001; 81003; 83690; 85025; 87086; 87635; 96361; 96365; 96366; 96375; 99284; J0696; J2405; Q9967

== ENCOUNTER 2023-03-24 08:00 | Outpatient (RCR) | payer OTHER, SELFPAY ==
[2023-03-19 11:59] VITALS: BP 123/75; PULSE 68
== END 2023-05-01 14:46 | disposition home or self-care (01) ==
LOC: HO.PT 08:00
PROVIDERS: PCP Internal Medicine; Visit Provider Internal Medicine
DX: H81.4 Vertigo of central origin (principal)
CPT/HCPCS: 95992; 97162

== ENCOUNTER → 2023-05-16 13:00 | Outpatient (BNV) | payer OTHER, SELFPAY | PROVIDERS: Visit Provider Psychiatry & Neurology Psychiatry | DX: F33.2 Major depressive disorder, recurrent severe without psychotic features (principal) | CPT/HCPCS: 99212; 99213; 99214 ==

== ENCOUNTER 2023-06-05 12:30 | Outpatient (RCR) | payer OTHER, SELFPAY ==
--- NOTE | 2023-05-15 13:09 | PC.ADMIT ---
Pt is a 58 y/o female, referred by [facility] after being admitted 04/03/23-04/24/23 for increased depression, anxiety and Psychogenic seizure which caused racing thoughts and SI behaviors. Pt states psychogenic seizure may be caused by increased stress with recent anniversary of fathers and hormonal changes. Pt reports current mood is anxious and that she feels she may need medication changes, she currently notes tremors, leg weakness and tingling of [place] extremities and has had a recent MRI with results pending. Patient is A&O x 4, attentive, cooperative, engaging, speech is clear, denies substance use. Patient reports fleeting passive SI, no plan or intent at this time. Safety plan reviewed and copy provided. Medication reconciled with patient and recent DC paperwork. Patient reports taking medication as prescribed.
[2023-05-15 13:43] VITALS: BP 108/68; PULSE 63; RESP 12; TEMP 36.3
--- NOTE | 2023-05-16 08:30 | HO.PHP ---
The clients case was reviewed and opened in treatment team
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
--- NOTE | 2023-05-19 09:30 | HO.PHP ---
The [id number] called out this morning because she is not feeling well
--- NOTE | 2023-05-22 13:14 | HO.PHPPROGNO ---
Subjective Subjective Date of Service: 05/22/23 Reason For Visit: psychosis Healthcare Proxy: No Guardianship: No Medical Problems Affecting Mental Status: Yes (epilepsy ) Interim History: pt started on cogentin 1 mg BID 3 days ago and feel much relief; she still feel tired and has some slight bilat tremors in hands. she is willing to continue medication and give it more time before changing the dose. Pt saw PCP and is scheduled for EMG and is being referred to new neurologist; she expresses hope for the future. No SI or HI, no VH. Medication Compliance: Yes Side effects from medications: Yes (fatigue) Attending Groups: Yes Review of Systems Acute medical concerns: No Medical Review of Systems: unchanged Review of Systems Constitutional: Reports as per HPI and Reports lethargy Reports tremor(s) (+1 bilat hands ) Mental Status Exam Mental Status Exam Narrative: Pt is alert, oriented and pleasant. Normal speech. Good eye contact. Affect is appropriate and varied. No signs of psychosis. She denies AVH. No current suicidal or homicidal ideations. Cognitively she is intact. Judgment is intact Diagnostics Vital Signs (24Hr): BMI result Body Mass Index 30.0 Assessment & Plan Assessment & Plan (1) Major depress, sev w/ psych: Status: Acute Code(s): F32.3 - Major depressive disorder, single episode, severe with psychotic features Plan She will continue partial hospital program. Current medications, Haldol 7 mg daily, Lexapro 10 mg daily, Seroquel 25 mg q.h.s. are continued and continue Cogentin 1 mg b.i.d. Again reviewed the importance following up with neurologist was stressed Patient educated on: diagnosis, medication risk/benefits, therapeutic strategies and medical condition Informed Consent: understands and further education needed Reason for contiued partial hosp. stay Substantial Risk for: harm to self, inability to function, rapid decompensation and med/psych decompensation Certification I certify that partial hospital treatment is medically necessary due to the symptoms and problems resulting from the patient's mental illness and the failure to treat the patient at the partial hospital level of care would likely result in the patient requiring inpatient psychiatric care which could not be prevented at a less intensive level of care. Total time managing care of this patient today __30__ minutes. Discharge Plan Discharge Attending provider: Eddie Orozco Medications: New benztropine 1 mg tablet 1 mg PO BID Qty: 60 0RF No Action levothyroxine 88 mcg tablet 88 mcg PO DAILY 30 Days Qty: 30 0RF quetiapine [Seroquel] 25 mg tablet 25 mg PO BEDTIME haloperidol [Haldol] 5 mg Tablet 5 mg PO BEDTIME phenytoin sodium extended 200 mg Capsule 200 mg PO BEDTIME phenytoin sodium extended 100 mg Capsule 100 mg PO DAILY lorazepam 0.5 mg Tablet 0.5 mg PO DAILY PRN (Reason: Anxiety) pantoprazole 40 mg Tablet,Delayed Release (Dr/Ec) 40 mg PO DAILY haloperidol [Haldol] 2 mg Tablet 2 mg PO DAILY escitalopram oxalate 10 mg Tablet 10 mg PO DAILY Telehealth Telehealth Location of provider rendering services: practice address Location of patient: other ([facility] ) Patient Identification confirmed using: Name, : Yes Telehealth method: video Patient verbally consented to treatment: Yes Patient verbally consented to billing insurance company: Yes Patient informed of any privacy concerns related to visit: Yes Minutes spent on Phone/Video with Pt.: 20
--- NOTE | 2023-05-30 09:39 | HO.PHPPROGNO ---
Subjective Subjective Date of Service: 05/30/23 Reason For Visit: psychosis Interim History: This is a follow-up visit with Katharina. She continues to be doing well at the partial hospital program and talked about the areas that has been very beneficial to her. The side effects from Haldol are almost fully relieved since she has been taking Cogentin. She did try going off of it and the symptoms came back. She had several questions about Haldol, Cogentin which we discussed. She is going to be here a few days next week and then being discharged. She has outpatient connections already in place at [facility]. No changes were made today. No prescriptions were sent in Review of Systems Review of Systems Yes all other systems are reviewed and are negative Mental Status Exam Mental Status Exam Narrative: Pt is alert, oriented and pleasant. Normal speech. Good eye contact. Affect is appropriate and varied. No signs of psychosis. She denies AVH. No current suicidal or homicidal ideations. Cognitively she is intact. Judgment is intact Diagnostics Vital Signs (24Hr): BMI result Body Mass Index 30.0 Assessment & Plan Assessment & Plan (1) Major depressive disorder, recurrent severe without psychotic features: Status: Acute Code(s): F33.2 - Major depressive disorder, recurrent severe without psychotic features Plan Continue current regimen. Continue partial and [facility] discharge next week Patient educated on: medication risk/benefits Certification I certify that partial hospital treatment is medically necessary due to the symptoms and problems resulting from the patient's mental illness and the failure to treat the patient at the partial hospital level of care would likely result in the patient requiring inpatient psychiatric care which could not be prevented at a less intensive level of care. Total time managing care of this patient today ____ minutes. Discharge Plan Discharge Attending provider: Eddie Orozco Medications: New benztropine 1 mg tablet 1 mg PO BID Qty: 60 0RF No Action levothyroxine 88 mcg tablet 88 mcg PO DAILY 30 Days Qty: 30 0RF quetiapine [Seroquel] 25 mg tablet 25 mg PO BEDTIME haloperidol [Haldol] 5 mg Tablet 5 mg PO BEDTIME phenytoin sodium extended 200 mg Capsule 200 mg PO BEDTIME phenytoin sodium extended 100 mg Capsule 100 mg PO DAILY lorazepam 0.5 mg Tablet 0.5 mg PO DAILY PRN (Reason: Anxiety) pantoprazole 40 mg Tablet,Delayed Release (Dr/Ec) 40 mg PO DAILY haloperidol [Haldol] 2 mg Tablet 2 mg PO DAILY escitalopram oxalate 10 mg Tablet 10 mg PO DAILY Stand Alone Forms: Patient Portal Discharge page Patient Education: Depression (DC)
--- NOTE | 2023-06-04 10:26 | HO.PHPPROGNO ---
Subjective Subjective Date of Service: 06/04/23 Reason For Visit: psychosis Interim History: Met with patient and review chart. Noted initial evaluation on 05/16/2023 with psychosis, significant self-injury driven by psychosis and on Haldol, Seroquel and Lexapro. Cogentin started. Reviewed follow-ups on 05/22/2023 and 05/30/2023. Today reports overall things are stable and going well. In some ways remains traumatized regarding recent psychotic episode, her self-harm and hospitalization. Very fearful that she could become psychotic again. Lots of education given around current medications and rationale for same. Patient will continue this regimen and thankful regarding same. Regarding Lexapro reports she was being tapered off this in the outpatient setting but will prefer to continue 10 mg rather than going down to 5 mg which was recommended. Reports she will continue on 10 mg at least for the holiday. Has that can sometimes be stressful. No current psychotic symptoms. Sleep energy and appetite okay. No SI. Feels supported. Does report some lethargy on Haldol but that the Cogentin has helped with tremors and overall side effects. Medication Compliance: Yes Side effects from medications: No Attending Groups: Yes Review of Systems Acute medical concerns: No Mental Status Exam Mental Status Exam Narrative: Pleasant. Engaged. Organized. Some anxiety evident, but largely euthymic. No SI. No HI. No agitation or psychosis. Insight and judgment good Diagnostics Vital Signs (24Hr): BMI result Body Mass Index 30.0 Assessment & Plan Assessment & Plan (1) Major depress, sev w/ psych: Status: Acute Code(s): F32.3 - Major depressive disorder, single episode, severe with psychotic features Plan Doing well on current treatment regimen. Tolerating Haldol and Cogentin helpful regarding side effects. Maintain Lexapro 10 mg i.e. will not be tapering off same and maintain this dose throughout the holiday.. Continue partial hospital programming. Does not require further psychiatry follow-up while in the program unless patient or staff feels this is necessary. Patient in agreement with the evaluation and plan. Patient educated on: medication risk/benefits Informed Consent: understands Reason for contiued partial hosp. stay Substantial Risk for: med/psych decompensation Certification I certify that partial hospital treatment is medically necessary due to the symptoms and problems resulting from the patient's mental illness and the failure to treat the patient at the partial hospital level of care would likely result in the patient requiring inpatient psychiatric care which could not be prevented at a less intensive level of care. Total time managing care of this patient today _20___ minutes. Discharge Plan Discharge Attending provider: Eddie Orozco Medications: New benztropine 1 mg tablet 1 mg PO BID Qty: 60 0RF No Action levothyroxine 88 mcg tablet 88 mcg PO DAILY 30 Days Qty: 30 0RF quetiapine [Seroquel] 25 mg tablet 25 mg PO BEDTIME haloperidol [Haldol] 5 mg Tablet 5 mg PO BEDTIME phenytoin sodium extended 200 mg Capsule 200 mg PO BEDTIME phenytoin sodium extended 100 mg Capsule 100 mg PO DAILY lorazepam 0.5 mg Tablet 0.5 mg PO DAILY PRN (Reason: Anxiety) pantoprazole 40 mg Tablet,Delayed Release (Dr/Ec) 40 mg PO DAILY haloperidol [Haldol] 2 mg Tablet 2 mg PO DAILY escitalopram oxalate 10 mg Tablet 10 mg PO DAILY Stand Alone Forms: Patient Portal Discharge page Patient Education: Depression (DC) Telehealth Telehealth Location of provider rendering services: other ([place]) Location of patient: other ([facility]) Telehealth method: video Minutes spent on Phone/Video with Pt.: 15
--- NOTE | 2023-06-04 10:55 | HO.PHP ---
Left a message with the clients therapist Conchita Nobles [facility] re client progress in PHP and planned dc date.
== END 2023-06-05 23:59 | disposition home or self-care (01) ==
LOC: HO.PHPA 12:30
PROVIDERS: Visit Provider Psychiatry & Neurology Psychiatry
DX: F33.2 Major depressive disorder, recurrent severe without psychotic features (principal); Z79.899 Other long term (current) drug therapy
CPT/HCPCS: 90791; 90853